=== PATIENT | female | born 1955 | race Caucasian/White ===

== ENCOUNTER → 2016-12-28 | Outpatient (CLI) | payer BC ==
[~2016-12-28] MED LIST: ASPIRIN 81MG TA81 MG PO; CEFDINIR 300MG300 MG PO; CIPRO 500MG TA500 MG PO; CLARITIN 10MG T10 MG PO; CLARITIN10 MG PO; CYMBALTA60 MG PO; DULOXETINE 30MG30 MG PO; DULOXETINE60 MG PO; GLIPIZIDE 5MG TA5 MG PO; HABITROL21 MG/24 H TD; LEVAQUIN500 MG PO; LISINOPRIL 20MG20 MG PO; LISINOPRIL40 MG PO; LORTAB 10/5001 TAB PO; LORTAB 500 MG-11 TAB PO; LYRICA75 MG PO; NOVOLIN 70/30 710 ML SC; NOVOLOG FLEX100 U/ML SC; NOVOLOG MI100 UNITS/ SC; OXYCODONE SR 2020 MG PO; Oxycodone5 MG PO; PERCOCET 10 MG1 EACH PO; PHENERGAN DM PO; PREDNISONE 20MG20 MG PO; PREDNISONE1 MG PO; PROAIR HFA0.09 MG/AC IH; PROMETHAZINE5 ML/UDC PO; PYRIDIUM 200MG200 MG PO; ROBITUSSIN DM S10 ML NG; SYNTHROID 0.10.15 MG PO; VALIUM5 MG PO; XANAX 0.25MG0.25 MG PO; ZANTAC150 M1 PO; ZESTRIL40 M1 PO; ZOFRAN4 MG PO
--- NOTE | 2016-12-28 16:03 | RADIOLOGY REPORT PS360 ---
NUC BONE SCAN-WHOLE BODY-TBB HISTORY: LUNG CA WITH METS ORDERING PHYSICIAN: Aravind Zambrano MD PATIENT AGE: 61 years DOSE: 25.7 mCi technique semi-MDP COMPARISON: None FINDINGS: Nonspecific articular activity is present in the shoulders, sternoclavicular joints, knees, and ankles. No abnormal activity evident that would indicate metastatic disease. Contamination artifact present in the perineal region. IMPRESSION: No convincing evidence of metastatic disease
== END ==
LOC: RAD 10:52
DX: C34.90 Malignant neoplasm of unspecified part of unspecified bronchus or lung (principal)
CPT/HCPCS: A9503

== ENCOUNTER 2017-02-19 10:35 | Outpatient (CLI) | payer BC ==
[~2017-02-19 10:35] MED LIST changes: +MIRALAX(PO17 GM/1 PA PO; +OXYCODONE SR 4040 MG PO
[2017-02-19 11:10] VITALS: BP 116/59
[2017-02-19 11:25] VITALS: BP 112/58
[2017-02-19 11:40] VITALS: BP 102/49
[2017-02-19 11:55] VITALS: BP 108/54
== END 2017-02-19 12:02 | disposition home or self-care (01) ==
LOC: COP 10:35
DX: C34.92 Malignant neoplasm of unspecified part of left bronchus or lung (principal)
CPT/HCPCS: J1642; J9271

== ENCOUNTER 2017-05-10 10:12 | Emergency (ER) | payer BC ==
[~2017-05-10] VITALS: Ht 167.6 cm; Wt 79.4 kg
[~2017-05-10 10:12] MED LIST changes: +LEVOTHYROXIN0.175 MG PO; +LEVOTHYROXINE0.15 M1 PO; +LYRICA 100 MG100 MG PO; +OXYCONTIN 20MG.20 MG PO
--- NOTE | 2017-05-10 11:01 | Emergency Room Report ---
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 N Clinical Suspician of Infection? Y Mental Status: 1 - Regular (Normal Baseline) Sepsis Risk:Low Sepsis Risk Have you (or family members/close friends) recently traveled outside the [place]? N If Yes, where/when: Have you had exposure to infectious disease within the past month? N TB? Other? Specify: Patient reports having no teeth lower left, and uses dentures, upper. Over the past few days she has had gingival pain and edema to the lower left gingivum, but no fever. She often does not wear her dentures due to this type of discomfort. Over the past two days, her left cheek has been numb, without any facial edema. No other new neurological symptoms. She has adrenal gland tumors for which she is being treated by Dr. Dow medically, and has a hx of radiation for lung cancer. She has had evaluations by Dr. Jacobo recently for edema, thought to be a side effect of Lyrica. She has no new cough, no fever, no vomiting, no cephalgia. She is a heavy smoker. ALLERGIES Coded Allergies: Sulfa (Sulfonamide Antibiotics) (Mild, NA-NAUSEA 05/10/17) Home Medications Active Scripts POLYETHYLENE GLYCOL (Miralax) 17 GM PO DAILY #30 DENNIS Prov: 02/08/17 Reported Medications ASPIRIN (Aspirin) 81 MG PO DAILY Alprazolam (Xanax 0.25MG) 0.25 MG PO BIDP PRN NERVES ONDANSETRON HCL (Zofran 4MG Tab) 4 MG PO Q6HP PRN NAUSEA AND VOMITING Glipizide (Glipizide 5MG) 5 MG PO DAILY #30 Oxycodone Hcl Sr (Oxycodone Sr 20MG) 20 MG PO Q4HP PRN PAIN Pregabalin (Lyrica 100Mg) 25 MG PO Q12H #60 CAPSULE Oxycodone Hcl Sr (Oxycontin 20MG) 20 MG PO Q12H Levothyroxine Sodium (Levothyroxine 0.175MG) 0.175 MG PO DAILY Albuterol Sulfate (Proair Hfa) 2 PUFF IH Q4HP PRN BREATHING #9 History Medical History General CAD? Yes Angina: Yes MD: No Hypertension? Yes Hyperlipidemia? Yes CHF? No DVT? No PE? No COPD? Yes Asthma? Yes Anemia? No GERD? No Gastric ulcers? No GI Bleed? No Hernia? No Thyroid Problems? Yes Hypothyroidism? No CVA? No Seizures? No Diabetes? Yes Insulin Dependent: No Insulin Pump: No Home FSBS? No Renal Insuffiency? No End Stage Renal Disease? No UTI? Yes Stones? No BPH? No GB Disease: Yes Nephritic Syndrome? No Asplenia? No Hepatitis? No Sickle Cell Disease? No Arthritis? Yes Migraines? No Cataracts? Yes Glaucoma? No MRSA? No HIV? No TB? No Anxiety? Yes Depression? No Cancer? Yes Site: LUNG LEFT SIDE More? Yes Additional hx: ADRENAL GLAND TUMOR Immunization Hx DT/Tetanus 5-10 Years Ago Flu 2014-16FSN Pneumonia Received In Past Surgical Hx Previous Surgery?Y HYSTERECTOMY SHOULDERS X2 R AND L BOWEL RESSECTION GALL BLADDER PTCA WITH STENTS 02/18 D AND C X 3 DX LAP APPY LYSIS OF ADHESIONS BOWEL OBSTRUCTION Family History Family Hx Diabetes Yes CAD Yes Hypertension Yes Hyperlipidemia Yes Cancer Yes TB Yes Social History Smoking Hx Smoker: Current Every Day Smoker Tobacco: Yes Type Cigarettes Packs/day > 3 Packs Are you/the child exposed to second-hand smoke: Yes Alcohol Alcohol: No Review of Systems All Other Systems Reviewed and Negative ENT see HPI, mouth pain, missing teeth. Comment heme/onc: see hpi Physical Exam Vital Signs Vital Signs Date Time Temp Pulse Resp B/P Pulse O2 O2 Flow FiO2 Ox Delivery Rate 05/10 1147 82 16 143/75 98 05/10 1020 97.7 82 16 152/85 98 General Appearance normal appearance, WD/WN, no apparent distress (chronically ill appearing) Eye Exam - bilateral eye normal exam, bilateral eye PERRL Ear, Nose, Throat tender left lower gingivum, edentulous left lower side. No drainage or odor. Jaw is without pain on palpation. No cellulitis of cheek. Subjectively numb, left cheek, to light touch but has good sensation to deep pressure. Neck normal inspection, non-tender, supple, full range of motion Respiratory Status Yes: trachea midline, chest symmetrical, non tender chest. No: respiratory distress, tender on palpation, use of accessory muscles, pain on inspiration, pain on expiration, productive cough, non productive cough. Lung Sounds bilateral: normal breath sounds, lungs clear, decreased breath sounds (heavy smoker). Cardiovascular normal exam, regular rate/rhythm, no gallop, no JVD, no murmur, no rub, normal peripheral pulses (mild edema BLE, nonpitting) Peripheral Pulses Pulses normal Yes Gastrointestinal normal bowel sounds, normal exam, non tender, soft, no organomegaly Extremities non-tender, normal range of motion, no calf tenderness, pedal edema Strength 5 Upper Ext (L), 5 Upper Ext (R), 5 Lower Ext (L), 5 Lower Ext (R) Neurologic alert, normal exam, no motor/sensory deficits, oriented x 3, NIHSS 1 for numbness to left cheek; F to N no dysmetria; no tremor; speech clear and fluent. Glascow Coma Scale Glascow Coma Scale Response Value EYE response: 4 Spontaneously 4 MOTOR response: 6 OBEYS 6 VERBAL response: 5 Oriented & Converses 5 Total 15 Reflexes DTR 3+ ankle (R), 3+ ankle (L) Skin intact, warm/dry, pallor Stroke Score/Tx Stroke Evaluation NIH STROKE SCORE NIH STROKE SCORE Response Value 1a.Level of Consciousness ALERT 0 1b.LOC Questions ANSWERS BOTH CORRECTLY 0 1c.LOC Commands OBEYS BOTH CORRECTLY 0 2 .Best Gaze NORMAL 0 3 .Visual NO VISUAL LOSS 0 4 .Facial Palsy NORMAL 0 5a.Motor Arm Left NO DRIFT 0 5b.Motor Arm Right NO DRIFT 0 6a.Motor Leg Left NO DRIFT 0 6b.Motor Leg Right NO DRIFT 0 7 .Limb Ataxia ABSENT 0 8 .Sensory PARTIAL LOSS 1 10.Dysarthria NORMAL ARTICULATION 0 ED.NIH11 NO NEGLECT 0 Total 1 Medical Decision Making LABS/Meds/Orders Pt receiving controlled substance in ED? No Vinayak was queried for this patient? No Results/Orders Laboratory Tests 05/10/17 1105: Sodium 140, Potassium 3.8, Chloride 102, Carbon Dioxide 30, BUN 14, Creatinine 0.9, Estimated Creat Clear 82, Estimated GFR (MDRD) 64, Glucose 107 H, Calcium 9.0, Total Bilirubin 0.3, AST 32, ALT 14, Alkaline Phosphatase 76, Total Protein 8.0, Albumin 3.7, Globulin 4.3 H, Albumin/Globulin Ratio 0.9 L, WBC 4.3 L, RBC 3.91 L, Hgb 12.3, Hct 37.1, MCV 94.8, RDW 13.0, Plt Count 209, MPV 7.8, Gran % 63.4, Gran # 2.7, Lymphocytes % 25.2, Monocytes % 8.9, Eosinophils % 1.6, Basophils % 0.9, Lymphocytes # 1.1, Monocytes # 0.4, Eosinophils # 0.1, Basophils # 0.0, PUBS MCHC 33.0, MCH 31.3 H Orders Procedure Date/time Status DIET-NOTHING BY MOUTH 05/[address] HEAD REQ 05/10 1045 Complete CBC WITH AUTO DIFF 05/10 1045 Complete CHEM 12 PROFILE 05/10 1045 Complete XRAY/CT/US XRAY/CT/US CT head CT interpretation by reviewed by me (report reviewed) Time results known: 1147 CT Results normal/NAD (neg acute; mastoid normal) Departure Departure Time of Disposition 1149 Disposition DC Home or Self Care(routine) Clinical Impression Primary Impression: Left facial numbness Secondary Impressions: Gingivitis Condition STABLE Referrals Juan Manuel GONZALEZ,Aravind Jacobo MD,Se Patient Instructions DI for Gingivitis Additional Instructions See Dr. Jacobo and Dr. Zambrano regarding gum pain and left face numbness; Rx amoxicillin. Discharge Counseling Counseled pt/family regarding diagnosis, test results, medications/RX, home care, follow up needs Prescriptions Current Visit Scripts Amoxicillin (Amoxicillin 500MG) 500 MG PO TID #30 CAP ED Critical Care Critical Care No at 1151
[2017-05-10 11:22] LABS: HEMOGLOBIN 12.3 g/dL (12.2-16.2); LYMPH # 1.1 K/mm3 (0.7-4.5); LYMPH % 25.2 % (10-50.0)
--- NOTE | 2017-05-10 11:35 | RADIOLOGY REPORT PS360 ---
CT HEAD W/O CONTRAST HISTORY: LEFT FACE NUMB X 3 DAYS,HX OF ADRENAL TUMORS,LEFT LOWER ORDERING PHYSICIAN: Jacqueline Valerio MD PATIENT AGE: 61 years COMPARISON: 08/24/2015 TECHNIQUE: Axial images obtained without contrast. Brain and bone windows reviewed. FINDINGS: No midline shift, mass effect, intracranial hemorrhage, hydrocephalus, or extra-axial fluid collection is evident. There is diffuse decreased attenuation in the periventricular and subcortical region suggesting ischemic gliotic microvascular changes. This is somewhat more prominent on today's exam than when compared to 08/24/2015 The calvarium has an unremarkable appearance. No mastoid effusion. The visualized paranasal sinuses are unremarkable. IMPRESSION: 1. No acute intracranial findings. 2. Diffuse hypoattenuation in the subcortical and periventricular white matter consistent with ischemic gliotic change from microvascular disease.
[2017-05-10] MEDS ORDERED: AMOXICOT500 MG PO (11:51)
[2017-05-10 12:00] VITALS: BP 143/75
[2017-05-18] MEDS ORDERED: WALK4 XX (08:03)
== END 2017-05-10 12:00 | disposition home or self-care (01) ==
LOC: ER 10:12
PROVIDERS: Emergency Medicine
DX: R20.0 Anesthesia of skin (principal); K05.10 Chronic gingivitis, plaque induced; Z72.0 Tobacco use; E11.9 Type 2 diabetes mellitus without complications; J44.9 Chronic obstructive pulmonary disease, unspecified; I10 Essential (primary) hypertension; Z85.118 Personal history of other malignant neoplasm of bronchus and lung

== ENCOUNTER 2017-05-17 17:15 | Observation (INO) | payer MEDICARE ==
[~2017-05-17] VITALS: Ht 167.6 cm; Wt 81.7 kg
[2017-05-17 17:27] VITALS: BP 102/84
--- NOTE | 2017-05-17 17:53 | Emergency Room Report ---
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 ORIGINALLY HAD BEEN DIAGNOSED WITH LUNG CA, ADRENAL CA, AND NOW BONE. 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 N Clinical Suspician of Infection? N Mental Status: 1 - Regular (Normal Baseline) Sepsis Risk:Low Sepsis Risk Have you (or family members/close friends) recently traveled outside the [place]? N If Yes, where/when: Have you had exposure to infectious disease within the past month? TB? Other? Specify: Comment The patient has multiple complaints, history is largely obtained from her son as the patient is a poor historian. He states that she fell today at around 10 or 11 AM. She did not answer family's calls and family member went over and found her in the floor. The patient says she had laid there for 3 hours. She was able to get up and ambulate with assistance, but complains of bilateral hip pain. He says that today she is off balance when she walks and is walking hunched over. All of that is new today. She says that when she tries to straighten up and walk erect her head hurts. She says that she has neck pain for about 2 weeks and lower back pain for about 3 weeks. Son states she is not eating well because of jaw pain which she has had for a couple of weeks. The patient was seen in this emergency room on 05/10/17 for jaw pain. She also had some facial numbness. She had a CT scan of her head that was unremarkable. She was started on amoxicillin for presumed dental origin of her pain. She followed up with her cancer doctor, Dr. Zambrano, and had a Panorex film on 05/15 which showed a lytic lesion. 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 She is also being treated for stage III small cell lung cancer, last treatment was in March. ALLERGIES Coded Allergies: Sulfa (Sulfonamide Antibiotics) (Mild, NA-NAUSEA 05/17/17) Home Medications Active Scripts POLYETHYLENE GLYCOL (Miralax) 17 GM PO DAILY #30 DENNIS Prov: 02/08/17 Amoxicillin (Amoxicillin 500MG) 500 MG PO TID #30 CAP Prov: 05/10/17 Reported Medications ASPIRIN (Aspirin) 81 MG PO DAILY Alprazolam (Xanax 0.25MG) 0.25 MG PO BIDP PRN NERVES ONDANSETRON HCL (Zofran 4MG Tab) 4 MG PO Q6HP PRN NAUSEA AND VOMITING Glipizide (Glipizide 5MG) 5 MG PO DAILY #30 Oxycodone Hcl Sr (Oxycodone Sr 20MG) 20 MG PO Q4HP PRN PAIN Pregabalin (Lyrica 100Mg) 25 MG PO Q12H #60 CAPSULE Oxycodone Hcl Sr (Oxycontin 20MG) 20 MG PO Q12H Levothyroxine Sodium (Levothyroxine 0.175MG) 0.175 MG PO DAILY Albuterol Sulfate (Proair Hfa) 2 PUFF IH Q4HP PRN BREATHING #9 History Medical History General CAD? Yes Angina: Yes [place]: No Hypertension? Yes Hyperlipidemia? Yes CHF? No DVT? No PE? No COPD? Yes Asthma? Yes Anemia? No GERD? No Gastric ulcers? No GI Bleed? No Hernia? No Thyroid Problems? Yes Hypothyroidism? No CVA? No Seizures? No Diabetes? Yes Insulin Dependent: No Insulin Pump: No Home FSBS? No Renal Insuffiency? No End Stage Renal Disease? No UTI? Yes Stones? No BPH? No GB Disease: Yes Nephritic Syndrome? No Asplenia? No Hepatitis? No Sickle Cell Disease? No Arthritis? Yes Migraines? No Cataracts? Yes Glaucoma? No MRSA? No HIV? No TB? No Anxiety? Yes Depression? No Cancer? Yes Site: LUNG LEFT SIDE More? Yes Additional hx: ADRENAL GLAND TUMOR Immunization Hx Ped.Immunizations UTD Yes DT/Tetanus 5-10 Years Ago Flu 2015-16FSN Pneumonia Received In Past Surgical Hx Previous Surgery?Y HYSTERECTOMY SHOULDERS X2 R AND L BOWEL RESSECTION GALL BLADDER PTCA WITH STENTS 6/05 D AND C X 3 DX LAP APPY LYSIS OF ADHESIONS BOWEL OBSTRUCTION Family History Family Hx Diabetes Yes CAD Yes Hypertension Yes Hyperlipidemia Yes Cancer Yes TB Yes Social History Smoking Hx Smoker: Current Every Day Smoker Tobacco: Yes Type Cigarettes Packs/day < 1 Pack Alcohol Alcohol: No Review of Systems All Other Systems Reviewed and Negative Constitutional see HPI, denies fever, weakness Respiratory denies cough, denies shortness of breath Cardiovascular denies chest pain Gastrointestinal denies abdominal pain, denies diarrhea, denies vomiting Genitourinary denies: dysuria, frequency. Musculoskeletal back pain, joint pain, neck pain Psychiatric/Neurological headache Physical Exam Vital Signs Vital Signs Date Time Temp Pulse Resp B/P Pulse O2 O2 Flow FiO2 Ox Delivery Rate 05/17 1727 97.8 81 18 102/84 100 General Appearance appears chronically ill and generally weak, sitting in a wheelchair Eye Exam - bilateral eye normal exam, bilateral eye PERRL, bilateral eye EOMI Ear, Nose, Throat hearing grossly normal, normal ENT inspection Neck minimal posterior tenderness Respiratory Status Yes: trachea midline, chest symmetrical. No: respiratory distress. Lung Sounds bilateral: normal breath sounds, lungs clear. Cardiovascular normal exam, regular rate/rhythm, no peripheral edema, no gallop, no JVD, no murmur, no rub, normal peripheral pulses Peripheral Pulses Pulses normal Yes Gastrointestinal normal bowel sounds, normal exam, non tender, soft, no organomegaly Back vertebral tenderness (mild lower lumbar) Extremities no deformity of lower extremities. Bilateral hip tenderness Neurologic alert, normal exam, oriented x 3 Mental status normal mood/affect Skin intact, normal color, warm/dry Medical Decision Making LABS/Meds/Orders Pt receiving controlled substance in ED? No Results/Orders Laboratory Tests 05/17/17 1905: Sodium 142, Potassium 4.6, Chloride 106, Carbon Dioxide 29, BUN 21 H, Creatinine 1.1 H, Estimated Creat Clear 67, Estimated GFR (MDRD) 50 L, Glucose 94, Calcium 8.1 L, Total Bilirubin 0.3, AST 65 H, ALT 22, Alkaline Phosphatase 81, Creatine Kinase 1399 H, CK-MB (CK-2) Rel Index 1.8, CK and CKMB Interp 25.5 *H, Troponin I < 0.02, Total Protein 7.7, Albumin 3.6, Globulin 4.1 H, Albumin/ Globulin Ratio 0.9 L, WBC 5.5, RBC 3.77 L, Hgb 11.8 L, Hct 35.4 L, MCV 93.8, RDW 13.1, Plt Count 210, MPV 7.5, Gran % 68.4, Gran # 3.8, Lymphocytes % 21.2, Monocytes % 7.4, Eosinophils % 2.1, Basophils % 0.8, Lymphocytes # 1.2, Monocytes # 0.4, Eosinophils # 0.1, Basophils # 0.1, PUBS MCHC 33.3, MCH 31.2 Current Medication Orders Sig/Steven Start time Last Medication Dose Route Stop Time Status Admin Sodium Chloride 10 ML PRN PRN 05/17 181 AC IV 05/18 180 Orders Procedure Date/time Status DIET-NOTHING BY MOUTH 05/18 B Active Decision to admit 05/17 2012 Active ELECTROCARDIOGRAM REQUEST 05/[address] HEAD REQ 05/[address] SCAN REQ 05/17 180 Active HIP RT 2-3V W/PELVIS IF PERFOR 05/17 180 Active HIP LT 2-3V W/PELVIS IF PERFOR 05/17 180 Active CHEST-AP VIEW ONLY 05/17 180 Active IV SALINE LOCK 05/17 180 Active URINALYSIS/COMPLETE 05/17 1804 Active CBC WITH AUTO DIFF 05/17 180 Complete CARDIAC ENZYMES 05/17 180 Complete CHEM 12 PROFILE 05/17 180 Complete CM/EKG CM/EKG Comments EKG interpreted by Nathan Manzanares MD: Rhythm: sinus Rate: 74 [place]: normal Ectopy: none Conduction: normal ST Segment Changes: none T Wave Changes: none Q Waves: none No evidence of acute ischemia or injury Low voltage QRS Baseline artifact present, but I consider the EKG adequate for accurate interpretation. Progress - 7:00 PM: Case discussed with Dr. Jacobo. He states the patient has a tendency to overuse pain medications and wanted me to question the patient about this. I did so and both the patient and her family states she has been using them as prescribed. 8:05 PM: I have discussed the case with Dr. Jacobo who agrees to admit the patient to the hospital. We discussed the patient's clinical information, including history, exam, laboratory and radiology results and ED course. Per hospital procedure, I will write temporary bridge inpatient orders on the patient. Specific orders requested by the admitting physician: IV hydration, continue current pain medications, repeat creatine phosphokinase in the morning Departure Departure Disposition Still a Patient Clinical Impression Primary Impression: Rhabdomyolysis Qualifiers: Rhabdomyolysis type: traumatic Encounter type: initial encounter Qualified Code: T79.6XXA - Traumatic ischemia of muscle, initial encounter Secondary Impressions: Dehydration Condition STABLE Referrals Se Jacobo MD (Family) ED Critical Care Critical Care No at 2025
[2017-05-17 19:15] LABS: HEMOGLOBIN 11.8 g/dL (12.2-16.2); LYMPH # 1.2 K/mm3 (0.7-4.5); LYMPH % 21.2 % (10-50.0)
--- NOTE | 2017-05-17 19:27 | RADIOLOGY REPORT PS360 ---
CT CERVICAL SPINE W/O CONT HISTORY: FALL. Patient Age: 61 years: Female Ordering Physician: Nathan Manzanares MD TECHNIQUE: Helical CT scanning through the cervical spine with sagittal and coronal reconstructions on CT workstation COMPARISON :No previous comparison C-spine studies FINDINGS Reversal of the normal cervical curvature with mild kyphosis through the lower cervical spine. This appears be due to the due to the degenerative disc space narrowing anteriorly at Lower C-spine most evident C5/ C6; C6/7. No lesions. No acute findings cervical spine.. Degenerative facet changes bilaterally are seen throughout the C-spine as well most evident on the right at C 2/3 C3/4, and on the left at C4/5 C5 C6 C6/7.. The cervical vertebral bodies are intact as stated with no destructive lesion evident If pain persists at the cervical spine MR is best evaluate for disc disease.. Cervical spondylosis. Mild posterior hypertrophic ridging most evident at C6/7, most evident the left at C6/7. This indents cervical canal to the left.. The thyroid is enlarged. The right lobe is larger than left. Right lobe measure over 5 cm length with slightly more lobulated particularly at its lower pole noting right lobe extends down to the sternal notch \& posterior to the head of right clavicle.. Indwelling Port-A-Cath enters from right Mild diffuse mucosal thickening left maxillary sinus mild inferior right maxillary sinus. Dental caries is seen at the remaining teeth. We do not visualize the right apical lucency beneath the right 2 seen on recent Panorex. I would note that this is a common spot for additional disease and may not be related to tumor. Dental evaluation required. I would note that there is a more prominent left masseter muscle been right. The right appears atrophic. Clinical correlation required. Prevertebral soft tissues are normal at the C-spine. No significant cervical adenopathy. IMPRESSION: 1. No lesions involving cervical spine . No acute fracture nor subluxation cervical spine. . 2. Degenerative disc and facet changes C-spine . Cervical spondylosis Reversal normal cervical curvature appears be due to degenerative disc space narrowing most evident anteriorly C5 C6 C6/7 and to lesser degree other levels. 3. Incidental Thyromegaly. Larger right lobe extends down to the sternal notch & is more lobulated than left.. Underlying thyroid nodules with largest likely over 2 cm size.. 4. No cervical adenopathy or mass otherwise seen. 5. Additional note. Suspect 2.2 cm enlarged lymph node posterior to the left SC joint axial image 73. . It appears separate from the thyroid.... After thyroid function and workup completed, recommended follow-up postcontrast CT neck and chest with contrast.
[2017-05-17 19:45] LABS: BUN 21 mg/dL (7-18); GFR (ESTIMATED) 50 ML/MIN (59-)
--- NOTE | 2017-05-17 19:46 | RADIOLOGY REPORT PS360 ---
CT LUMBAR SPINE W/O CONTRAST HISTORY: FALL. With low back pain. HISTORY of cancer. Patient Age: 61 years: Female Ordering Physician: Nathan Manzanares MD TECHNIQUE: Helical CT scanning performed through the and lumbar spine with sagittal and coronal reconstructions COMPARISON :Previous MRI lumbar spine from 2012 for comparison. FINDINGS No acute fracture nor subluxation lumbar spine nor visualized portions sacrum. Lumbar Vertebral body heights are maintained with no apparent destructive lesion. . Mild chronic changes but SI joints appear similar to previous studies. There is a slight 18 mm relative lucent appearance at the anterior left sacrum on axial image 46. Appearing other projections this appears to be merely an area of relative left density but recommend bone scan this patient to further evaluate.. Difficult to exclude a osseous lesion here. Recommend bone scan to further evaluate Bilateral adrenal masses have shown progression since prior study. Left adrenal now measuring up to 6 cm. The right adrenal measuring over 7 cm diameter maximally x 8.5 cm height. These are shown interval progression since 02/04/2017. IMPRESSION: Lumbar spine intact no acute findings.. No fractures evident Prominent progression of the previously identified adrenal masses since since January 2017 exam Right adrenal now measuring over a 8.5 cm cm height. Warrants follow-up CT abdomen and pelvis with contrast as outpatient after thyroid function test and workup.. No discrete destructive osseous lesions.. Slight relative lucency at inferior left sacral discussed above most likely normal bone thinning here but recommend bone scan to further evaluate osseous structures.. Addendum. The right thyroid appears to the large since previous CT chest . The questioned mediastinal nodule behind the left orbital joint could be related to the left thyroid enlargement based on prior CT chest
--- NOTE | 2017-05-17 19:46 | RADIOLOGY REPORT PS360 ---
CT HEAD WITHOUT CONTRAST CT BONE WINDOWS included ORDERING PHYSICIAN : Nathan Manzanares MD PATIENT AGE: 61 years GENDER: Female PROCEDURE: Routine axial images headwithout contrast. Brain & bone windows HISTORY: FALL. Head injury Headache. HISTORY of cancer COMPARISON: 05/10/2017 CT head without contrast FINDINGS: No acute intracranial findings. No hemorrhage. No mass effect or mass lesion on this noncontrast study. No subdural nor extra-axial collection. Diffuse low-density periventricular and subcortical deep white matter is again seen-unchanged since previous study. This most likely reflects chronic small vessel ischemic gliotic changes.. Postradiation changes can have similar appearance of relevant. Mild/moderate diffuse cerebral atrophy. Ventricles & basal cisterns appear satisfactory. Mild streak artifact diminishes resolution towards the base of the brain but adequate study. . The posterior fossa appear satisfactory and unremarkable. The skull is intact. The visualized portions of the paranasal sinuses are clear. Mastoid air cells, middle ear & IACs are unremarkable. IMPRESSION: No acute intracranial findings. No mass effect or mass lesion. No significant change since 05/10/2017. Chronic small vessel deep white matter changes Skull. No destructive lesions evident
--- NOTE | 2017-05-17 20:36 | RADIOLOGY REPORT PS360 ---
CHEST-AP VIEW ONLY HISTORY: weak history of cancer with radiation therapy Patient Age: 61 years: Female Ordering Physician: Nathan Manzanares MD TECHNIQUE: AP chest upright COMPARISON :04/01/[address] chest 03/28/2017 FINDINGS Prominent left hilum .-A basically unchanged.) A slightly less pronounced today than 04/01/2017. Postradiation changes here with. Linear scarring at the left midlung again evident Port-A-Cath enters from the right subclavian with tip at SVC. Right chest stable. Less optimal inspiration today. Heart upper normal in size. Superior mediastinum unremarkable. Ribs chest wall unremarkable. IMPRESSION: Basically stable chest. No significant new findings Prominent left left jameson persist. With no significant change since 04/01/2017. Treated post radiation left hilar mass. . Port-A-Cath remains entering from right
[2017-05-17 20:40] VITALS: BP 125/67
--- NOTE | 2017-05-17 20:43 | RADIOLOGY REPORT PS360 ---
, HIP RT 2-3V W/PELVIS IF PERFOR HIP LT hip 2-3V HISTORY: weakhistory of cancer fall with pain at hips Patient Age: 61 years: Female Ordering Physician: Nathan Manzanares MD TECHNIQUE: Left hip: AP frog-leg view left hip Right hip AP frog-leg view AP pelvis radiograph COMPARISON : CT abdomen and pelvis from January 2017 ======== LEFT HIP 2 view ankle . Left hip intact femoral head and neck intact trochanteric region intact. Left hip joint space well maintained RIGHT HIP Right hip intact a with no fracture evident. No discrete lesion. Femoral head and neck intact. . there is subtle relative lucency at the superior base of the right femoral head but this is stable since previous CT studies January 2017, September 2015, as well as March 2015. Most likely minor subchondral cystic feature.. Trochanteric region intact. Right hip joint spaces well-maintained. ========= AP PELVIS. Osseous pelvis intact with no lesions evident. Stable appearance. Generous stool right colon incidentally noted IMPRESSION Right and left hip intact. No fracture. Osseous pelvis intact. No acute findings of these structures. No destructive lesions
[2017-05-17 21:00] VITALS: BP 125/67
[2017-05-18 04:50] VITALS: BP 135/55
[2017-05-18 06:18] LABS: URINE BILIRUBIN - DIPSTICK NEGATIVE (NEG); URINE BLOOD 2+ (NEG)
[2017-05-18 08:00] VITALS: BP 127/54
--- NOTE | 2017-05-18 08:00 | Discharge Summary Standard ---
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 Patient lives alone. Patient states she stumbled walking through her house where there is a slight bump in the floor. She was too weak to get up under her own power and laid on the floor for approximately 3 hours. She was found by family brought to the emergency department. In the emergency department workup was begun. Patient did not have any bone fractures that was found to have mild rhabdomyolysis with an elevated creatine phosphokinase over thousand. Patient was admitted for IV fluids. Past medical history: Family HX Family Hx Insignificant No Diabetes Yes CAD Yes Hypertension Yes Hyperlipidemia Yes Cancer Yes TB Yes Immunization HX Ped.Immunizations UTD Yes DT/Tetanus 5-10 Years Ago Flu 2014-FSN Pneumonia Received In Past TB Test in last year No General CAD? Yes Angina: Yes MO: No Hypertension? Yes Hyperlipidemia? Yes CHF? No DVT? No PE? No COPD? Yes Asthma? Yes Anemia? No GERD? No Gastric ulcers? No GI Bleed? No Hernia? No Thyroid Problems? Yes Hypothyroidism? No CVA? No Seizures? No Diabetes? Yes Insulin Dependent: No Insulin Pump: No Home FSBS? No Renal Insuffiency? No UTI? Yes Stones? No BPH? No GB Disease: Yes Nephritic Syndrome? No Asplenia? No Hepatitis? No Sickle Cell Disease? No Arthritis? Yes Migraines? No Cataracts? Yes Glaucoma? No MRSA? No HIV? No TB? No Anxiety? Yes Depression? No Cancer? Yes Site: LUNG LEFT SIDE More? Yes Additional hx: ADRENAL GLAND TUMOR Past Surgical HX Previous Surgery?Y HYSTERECTOMY SHOULDERS X2 R AND L BOWEL RESSECTION GALL BLADDER PTCA WITH STENTS 02/18 D AND C X 3 DX LAP APPY LYSIS OF ADHESIONS BOWEL OBSTRUCTION Current home meds: Active Scripts POLYETHYLENE GLYCOL (Miralax) 17 GM PO DAILY #30 DENNIS Prov: 02/08/17 Amoxicillin (Amoxicillin 500MG) 500 MG PO TID #30 CAP Prov: 05/10/17 Reported Medications Alprazolam (Xanax 0.25MG) 0.25 MG PO BIDP PRN NERVES ONDANSETRON HCL (Zofran 4MG Tab) 4 MG PO Q6HP PRN NAUSEA AND VOMITING Glipizide (Glipizide 5MG) 5 MG PO DAILY #30 Pregabalin (Lyrica 100Mg) 25 MG PO Q12H #60 CAPSULE Oxycodone Hcl Sr (Oxycontin 20MG) 20 MG PO Q12H Levothyroxine Sodium (Levothyroxine 0.175MG) 0.175 MG PO DAILY Albuterol Sulfate (Proair Hfa) 2 PUFF IH Q4HP PRN BREATHING #9 Social Hx: Smoking HX Tobacco Yes Type Cigarettes Packs/day > 3 PACKS Alcohol Alcohol: No Hx of Drug Use Drug Use? No Patient's support system is good Review of systems: Constitutional weakness. Respiratory shortness of breath. Cardiovascular no symptoms reported Gastrointestinal/Abdominal no symptoms reported, poor appetite (due to pain) Genitourinary no symptoms reported. Musculoskeletal back pain, joint pain, muscle pain, muscle stiffness. Neurological Yes: tingling (LEFT jaw). No: headache, numbness. Exam: Lab data for last 24 hours: Laboratory Tests 05/18/17 0630: Sodium 144, Potassium 3.6, Chloride 108 H, Carbon Dioxide 28, BUN 16, Creatinine 0.9, Estimated Creat Clear 85, Estimated GFR (MDRD) 64, Glucose 114 H, Calcium 8.3 L, Creatine Kinase 776 H 05/18/17 0609: Urine Color YELLOW, Urine Appearance CLEAR, Urine pH 5.5, Ur Specific [place] 1.020, Urine Protein NEGATIVE, Urine Ketones NEGATIVE, Urine Blood 2+ H, Urine Nitrate POSITIVE H, Urine Bilirubin NEGATIVE, Urine Urobilinogen 0.2, Ur Leukocyte Esterase TRACE H, Urine RBC 5-10, Urine WBC 5-10, Ur Squamous Epith Cells 3-5, Urine Bacteria 4+, Urine Glucose NEGATIVE 05/17/172: POC Glucose 90 05/17/17 1905: Sodium 142, Potassium 4.6, Chloride 106, Carbon Dioxide 29, BUN 21 H, Creatinine 1.1 H, Estimated Creat Clear 67, Estimated GFR (MDRD) 50 L, Glucose 94, Calcium 8.1 L, Total Bilirubin 0.3, AST 65 H, ALT 22, Alkaline Phosphatase 81, Creatine Kinase 1399 H, CK-MB (CK-2) Rel Index 1.8, CK and CKMB Interp 25.5 *H, Troponin I < 0.02, Total Protein 7.7, Albumin 3.6, Globulin 4.1 H, Albumin/ Globulin Ratio 0.9 L, WBC 5.5, RBC 3.77 L, Hgb 11.8 L, Hct 35.4 L, MCV 93.8, RDW 13.1, Plt Count 210, MPV 7.5, Gran % 68.4, Gran # 3.8, Lymphocytes % 21.2, Monocytes % 7.4, Eosinophils % 2.1, Basophils % 0.8, Lymphocytes # 1.2, Monocytes # 0.4, Eosinophils # 0.1, Basophils # 0.1, PUBS MCHC 33.3, MCH 31.2 Microbiology 05/18 0609 URINE CC: Urine Culture - RECD Hospital Course Hospital Course: Patient was admitted and placed on IV normal saline 150 ML's an hour. The following morning her creatine phosphokinase decreased to 700. The patient desired discharged home area patient was discharged home. She will need a walker and she has felt increasingly weak. The importance of rehydration has been emphasized. Her urine is abnormal and I will follow up on the culture. Patient has follow-up with her oncologist in regards to treatment options for the metastatic disease in her mandible later this week and she will follow-up with me the following day. Medications Medications: Discharge meds are as noted. Follow up Follow up in office in: 5 DAYS with: Se Jacobo MD at 0800
[2017-05-18 08:24] VITALS: BP 127/54
--- NOTE | 2017-05-18 11:11 | PHARMACY CLINIC NOTE ---
Patient Demographics Patient Demographics Admission date: 05/17/17 Date: 05/18/17 Time: 1111 Allergies Coded Allergies: Sulfa (Sulfonamide Antibiotics) (Mild, NA-NAUSEA 05/17/17) HEIGHT- FT: 5 IN: 6.00 K.704 VTE General Information Labs: Laboratory Tests 05/17 190 Hematology Hgb (12.2 - 16.2 g/dL) 11.8 L Hct (37.0 - 47.0 %) 35.4 L Plt Count (142 - 424 K/mm3) 210 Disclaimer The following section includes nursing documentation that has been pulled in for pharmacy review. Patient's VTE score: 6 Patient's VTE Risk: MOD RISK Clinical trial participant? No VTE prophylaxis NQF [id number] VTE prophylaxis ordered? Yes Type of prophylaxis/treatment: YENI at 1111
[2017-05-18 13:20] VITALS: BP 127/54
--- OUTSIDE RECORDS SUMMARY | 2017-06-22 00:51 | External Medical Summary Rpt ---
Author Author , DEDRICK TSE Address Unknown Phone [email or web address] Immunization Name Date Rout CVX Reac Dose Comm Prov Is Faci e tion ent ider Refu lity Give sed n Hep 05-3 43 999 Hist H191 No H191 B, 0-19 oric adul 97 al t Info rmat ion - Sour ce Unsp ecif ied Hep 12-3 43 999 Hist H191 No H191 B, 0-19 oric adul 96 al t Info rmat ion - Sour ce Unsp ecif ied
--- OUTSIDE RECORDS SUMMARY | 2017-06-22 00:51 | External Medical Summary Rpt ---
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 Name Role Phone DEMI FERNANDEZ MD, Unavailable Unavailable DEMI FERNANDEZ MD Purpose Continuity of Care Document - 05-22-2013 through 2016 Problems Code Diagnosis DOS Provider Status 250.01 250.01 DIAB 05-22-2013 [facility], TYPE Hospital I [JUVENILE TYPE], NOT UNCNTRLD 305.1 305.1 05-22-2013 [place] TOBACCO USE [facility] DISORDER Hospital 401.9 401.9 05-22-2013 [place] HYPERTENSIO [facility] N NOS Hospital 491.9 491.9 05-22-2013 [place] CHRONIC [facility] BRONCHITIS Hospital NOS 493.90 493.90 05-22-2013 [place] ASTHMA, [facility] UNSPECIFIED Hospital 786.2 786.2 COUGH 05-22-2013 [facility] 786.50 786.50 05-22-2013 [place] CHEST PAIN [facility] Hospital 789.06 789.06 05-22-[address] [place] [address] [facility], Hospital EPIGASTRIC C34.90 MALIGNANT NEOPLASM OF UNSP PART OF UNSP BRONCHUS OR LUNG E11.9 TYPE 2 DIABETES MELLITUS WITHOUT COMPLICATIO NS E16.2 HYPOGLYCEMI A, UNSPECIFIED E86.0 DEHYDRATION E87.5 HYPERKALEMI A J40 BRONCHITIS, NOT SPECIFIED ACUTE OR CHRONIC J44.1 CHRONIC OBSTRUCTIVE PULMONARY DISEASE W (ACUTE) EXACERBATIO N J45.909 UNSPECIFIED ASTHMA, UNCOMPLICAT ED K05.10 CHRONIC GINGIVITIS, PLAQUE INDUCED K29.70 GASTRITIS, UNSPECIFIED , WITHOUT BLEEDING K59.00 CONSTIPATIO N, UNSPECIFIED M53.3 SACROCOCCYG EAL DISORDERS, NOT ELSEWHERE CLASSIFIED M62.82 RHABDOMYOLY SIS M89.8X1 OTHER SPECIFIED DISORDERS OF BONE, SHOULDER R09.89 OTH SYMPTOMS AND SIGNS INVOLVING THE CIRC AND RESP SYSTEMS R10.9 UNSPECIFIED ABDOMINAL PAIN R20.0 ANESTHESIA OF SKIN S40.011A CONTUSION OF RIGHT SHOULDER, INITIAL ENCOUNTER S50.11XA CONTUSION OF RIGHT FOREARM, INITIAL ENCOUNTER Allergies, Adverse Reactions, Alerts Type Drug Allergy Adverse Reaction to Substance Substance Reaction Severity Codeine Unknown Unknown Morphine Unknown Unknown Vital Signs 05-22-2013 14:19 Name Value Interpretat Reference Comment ion Range BP 72 mm[Hg] Diastolic BP Systolic 155 mm[Hg] Heart 70 /min Rate/Pulse O2% 95 % Respiratory 20 /min Rate 05-22-2013 10:50 Name Value Interpretat Reference Comment ion Range BP 70 mm[Hg] Diastolic BP Systolic 158 mm[Hg] Heart 84 /min Rate/Pulse O2% 91 % Respiratory 20 /min Rate Results Labs Lab Lab Date Result Refere Interp Status Commen Order Detail nces retati t Range on Bacteria identified in Urine by Culture (05-18-2017 06:09) Bacteri Escheri complet a 017 marcia ed identif 06:09 coli ied in Urine by Culture Urinalysis dipstick W Reflex Microscopic panel in Urine (05-18-2017 06:09) Bacteri 4+ O complet a 017 ed [Presen 06:09 ce] in Urine sedimen t by Light microsc opy Erythro 5-10 0 complet cytes 017 ed [Presen 06:09 ce] in Urine sedimen t by Light microsc opy Epithel 3-5 0#/hp complet ial 017 f - ed cells.s 06:09 5#/hp quamous f [Presen ce] in Urine sedimen t by Microsc opy high power field Leukocy 5-10 O complet maritza 017 wbc/hpf ed [#/volu 06:09 me] in Urine Urinalysis dipstick W Reflex Microscopic panel in Urine (05-18-2017 06:09) Appeara CLEAR CLEAR complet nce of 017 ed Urine 06:09 Bilirub NEGATIV NEG complet in 017 E ed [Presen 06:09 ce] in Urine by Test strip Erythro 2+ NEG Abnorma complet cytes 017 l ed [Presen 06:09 ce] in Urine Color YELLOW YELLOW complet of 017 ed Urine 06:09 Ketones NEGATIV NEG complet 017 E ed [Presen 06:09 ce] in Urine by Automat ed test strip Mucus TRACE NEG Abnorma complet [Presen 017 l ed ce] in 06:09 Urine sedimen t by Light microsc opy Nitrite POSITIV NEG Abnorma complet 017 E l ed [Presen 06:09 ce] in Urine by Test strip Urobili 0.2 NEG complet nogen 017 ed [Presen 06:09 ce] in Urine by Test strip Urinalysis dipstick W Reflex Microscopic panel in Urine (04-01-2017 19:35) Bacteri TRACE O complet a 017 ed [Presen 19:35 ce] in Urine sedimen t by Light microsc opy Erythro NONE 0 complet cytes 017 ed [Presen 19:35 ce] in Urine sedimen t by Light microsc opy Epithel OCC 0#/hp complet ial 017 f - ed cells.s 19:35 5#/hp quamous f [Presen ce] in Urine sedimen t by Microsc opy high power field Urinalysis dipstick W Reflex Microscopic panel in Urine (04-01-2017 19:35) Appeara CLEAR CLEAR complet nce of 017 ed Urine 19:35 Bilirub NEGATIV NEG complet in 017 E ed [Presen 19:35 ce] in Urine by Test strip Erythro TRACE-I NEG complet cytes 017 NTACT ed [Presen 19:35 ce] in Urine Color YELLOW YELLOW complet of 017 ed Urine 19:35 Ketones NEGATIV NEG complet 017 E ed [Presen 19:35 ce] in Urine by Automat ed test strip Mucus TRACE NEG Abnorma complet [Presen 017 l ed ce] in 19:35 Urine sedimen t by Light microsc opy Nitrite NEGATIV NEG complet 017 E ed [Presen 19:35 ce] in Urine by Test strip Urobili 0.2 NEG complet nogen 017 ed [Presen 19:35 ce] in Urine by Test strip COMPREHENSIVE METABOLIC PANEL (05-22-2013 11:25) Glucose 177 74-106 complet 013 mg/dL ed Bld-mCn 11:25 c BUN 14 7-18 complet Bld-mCn 013 mg/dL ed c 11:25 Creat 0.9 0.6-1.0 complet SerPl-m 013 mg/dL ed Cnc 11:25 ESTIMAT 100 50-200 complet ED 013 ML/MIN ed CREATIN 11:25 INE CLEARAN CE GFR 65 59- complet (ESTIMA 013 ML/MIN ed YENI) 11:25 Sodium 137 136-145 complet SerPl-s 013 mmoL/L ed Cnc 11:25 Potassi 3.8 3.5-5.1 complet um 013 mmoL/L ed SerPl-s 11:25 Cnc Chlorid 100 98-107 complet e 013 mmoL/L ed SerPl-s 11:25 Cnc CO2 29 21.0-32 complet SerPl-s 013 mmoL/L .0 ed Cnc 11:25 Calcium 8.7 8.5-10. complet 013 mg/dL 1 ed SerPl-m 11:25 Cnc Prot 8.1 6.4-8.2 complet SerPl-m 013 gm/dL ed Cnc 11:25 Albumin 3.7 3.4-5.0 complet 013 gm/dL ed SerPl-m 11:25 Cnc Globuli 4.4 1.3-3.2 complet n 013 gm/dL ed Ser-mCn 11:25 c Albumin 0.8 UNK 1.1-1.8 complet /Glob 013 ed SerPl-m 11:25 Rto Bilirub 0.3 0.2-1.0 complet 013 mg/dL ed SerPl-m 11:25 Cnc AST 14 U/L 15-37 complet SerPl-c 013 ed Cnc 11:25 ALT 29 U/L 30-65 complet SerPl-c 013 ed Cnc 11:25 ALP 131 U/L 50-136 complet SerPl-c 013 ed Cnc 11:25 CK SerPl-cCnc (05-22-2013 11:25) CK 175 U/L 26-192 complet SerPl-c 013 ed Cnc 11:25 CK MB SerPl-mCnc (05-22-2013 11:25) CK MB 1.5 0.0-3.6 complet SerPl-m 013 ng/mL ed Cnc 11:25 TROPONIN I (05-22-2013 11:25) TROPONI Less 0.00-0. complet N I 013 than 06 ed 11:25 0.02 ng/mL CBC with AUTO DIFF (05-22-2013 11:25) WBC # 10.1 4.8-10. complet Bld 013 K/MM3 8 ed Auto 11:25 RBC # 5.12 4.2-5.4 complet Bld 013 M/mm3 ed Auto 11:25 Hgb 15.6 12.2-16 complet Bld-mCn 013 g/dL .2 ed c 11:25 Hct Fr 47.2 % 37.0-47 complet Bld 013 .0 ed 11:25 MCV RBC 92.2 fl 82.2-97 complet 013 .8 ed 11:25 MCH RBC 30.4 pg 27-31.2 complet Qn 013 ed Auto 11:25 MEAN 33.0 31.8-35 complet CORPUSC 013 g/dl .4 ed ULAR 11:25 HGB CONC RDW RBC 05-22-2 14.3 % 11.5-17 complet Auto 013 .5 ed 11:25 Platele 297 142-424 complet t Bld 013 K/mm3 ed Ql 11:25 Manual MEAN 8.3 fl 7.4-10. complet PLATELE 013 4 ed T 11:25 VOLUME Granulo 72.6 % 37.0-80 complet cytes 013 .0 ed Fr Bld 11:25 Auto LYMPH % 2 20.9 % 10-50.0 complet 013 ed 11:25 Monocyt 09-06-2 4.2 % 1.7-9.3 complet es Fr 013 ed Bld 11:25 Auto Eosinop 09-06-2 1.6 % 0.1-12. complet hil Fr 013 0 ed Bld 11:25 Auto Basophi 09-06-2 0.7 % 0.1-2.0 complet ls Fr 013 ed Bld 11:25 Auto Granulo 09-06-2 7.3 1.8-7.8 complet cytes # 013 K/mm3 ed Bld 11:25 Auto Lymphoc 09-06-2 2.1 0.7-4.5 complet ytes Fr 013 K/mm3 ed Bld 11:25 Auto Monocyt 09-06-2 0.4 0.1-1.0 complet es # 013 K/mm3 ed Bld 11:25 Auto Eosinop 09-06-2 0.2 0.0-0.4 complet hil # 013 K/mm3 ed Bld 11:25 Auto Basophi 09-06-2 0.1 0-0.2 complet ls # 013 K/MM3 ed Bld 11:25 Auto Glucose BldC Glucomtr-mCnc (05-22-2013 10:37) Glucose 202 70-110 complet BldC 013 mg/dl ed Glucomt 10:37 r-mCnc Encounters Encounter Start End Date Code Location Performer Type Date Emergency WILLIAM FERNANDEZ (ER) 3 10:50 3 14:21 [facility] DEMI
--- OUTSIDE RECORDS SUMMARY | 2017-06-22 00:51 | External Medical Summary Rpt ---
Author Author , DEDRICK TSE Address Unknown Phone [email or web address] Care Team Providers Care Automatic Fabric Cutter Name Role Phone DEMI FERNANDEZ MD, Unavailable Unavailable DEMI FERNANDEZ MD Purpose Continuity of Care Document - 05-22-2013 through 2016 Problems Code Diagnosis DOS Provider Status 250.01 250.01 DIAB 05-22-2013 [facility], TYPE Hospital I [JUVENILE TYPE], NOT UNCNTRLD 305.1 305.1 05-22-2013 [place] TOBACCO USE [facility] DISORDER Hospital 401.9 401.9 05-22-2013 [place] HYPERTENSIO [facility] N NOS Hospital 491.9 491.9 05-22-2013 [place] CHRONIC [facility] BRONCHITIS Hospital NOS 493.90 493.90 05-22-2013 [place] ASTHMA, [facility] UNSPECIFIED Hospital 786.2 786.2 COUGH 05-22-2013 [facility] 786.50 786.50 05-22-2013 [facility] CHEST PAIN [facility] Hospital 789.06 789.06 05-22-2013 [facility] ABDOMINAL [facility], Hospital EPIGASTRIC C34.90 MALIGNANT NEOPLASM OF UNSP [...] WILLIAM FERNANDEZ (ER) 3 10:50 3 14:21 [facility] DEMI
--- OUTSIDE RECORDS SUMMARY | 2017-06-22 00:51 | External Medical Summary Rpt ---
Author Author , DEDRICK TSE Address Unknown Phone [email or web address] Immunization Name Date Rout CVX Reac Dose [...]
--- OUTSIDE RECORDS SUMMARY | 2017-06-22 00:53 | External Medical Summary Rpt ---
Author Author [employer], [employer] Organization [employer] Address Unknown Phone Unavailable Results Viral susceptibility panel in Isolate Observa Value Referen Units Interpr Notes Date tion ce etation Range Ampicilli No ug/ml Resistant No Sep 4 n informati informati 2017 6:17 [Suscepti on in on in AM bility] source source by data data Minimum inhibitor y concentra tion (EMETERIO) Amoxicill No ug/ml Susceptib No Sep 4 in+Clavul informati le informati 2017 6:17 anate on in on in AM [Suscepti source source bility] data data by Minimum inhibitor y concentra tion (EMETERIO) Ceftazidi No ug/ml Susceptib No Sep 4 me+Clavul informati le informati 2017 6:17 anate on in on in AM [Suscepti source source bility] data data by Minimum inhibitor y concentra tion (EMETERIO) Ceftriaxo No ug/ml Susceptib No Sep 4 ne informati le informati 2017 6:17 [Suscepti on in on in AM bility] source source by data data Minimum inhibitor y concentra tion (EMETERIO) Cefazolin No ug/ml Susceptib No Sep 4 informati le informati 2017 6:17 [Suscepti on in on in AM bility] source source by data data Minimum inhibitor y concentra tion (EMETERIO) Beta No ug/ml No No Sep 4 lactamase informati informati informati 2017 6:17 .extended on in on in on in AM spectrum source source source data data data [Suscepti bility] Ertapenem No ug/ml Susceptib No Sep 4 informati le informati 2017 6:17 [Suscepti on in on in AM bility] source source by data data Minimum inhibitor y concentra tion (EMETERIO) Cefepime No ug/ml Susceptib No Sep 4 [Suscepti informati le informati 2017 6:17 bility] on in on in AM by source source Minimum data data inhibitor y concentra tion (EMETERIO) Nitrofura No ug/ml Susceptib No Sep 4 ntoin informati le informati 2017 6:17 [Suscepti on in on in AM bility] source source by data data Minimum inhibitor y concentra tion (EMETERIO) Gentamici No ug/ml Resistant No Sep 4 n informati informati 2017 6:17 [Suscepti on in on in AM bility] source source by data data Minimum inhibitor y concentra tion (EMETERIO) Imipenem No ug/ml Susceptib No Sep 4 [Suscepti informati le informati 2017 6:17 bility] on in on in AM by source source Minimum data data inhibitor y concentra tion (EMETERIO) Levofloxa No ug/ml Resistant No Sep 4 davy informati informati 2017 6:17 [Suscepti on in on in AM bility] source source by data data Minimum inhibitor y concentra tion (EMETERIO) Ampicilli No ug/ml Intermedi No Sep 4 n+Sulbact informati ate informati 2017 6:17 am on in on in AM [Suscepti source source bility] data data by Minimum inhibitor y concentra tion (EMETERIO) Trimethop No ug/ml Resistant No Sep 4 rim+Sulfa informati informati 2017 6:17 methoxazo on in on in AM le source source [Suscepti data data bility] by Minimum inhibitor y concentra tion (EMETERIO) Tobramyci No ug/ml Intermedi No Sep 4 n informati ate informati 2017 6:17 [Suscepti on in on in AM bility] source source by data data Minimum inhibitor y concentra tion (EMETERIO) Piperacil No ug/ml Susceptib No Sep 4 solo+Tazob informati le informati 2017 6:17 actam on in on in AM [Suscepti source source bility] data data by Minimum inhibitor y concentra tion (EMETERIO) Glucose [Mass/volume] in Capillary blood by Glucometer Observa Value Referen Units Interpr Notes Date tion ce etation Range Glucose 70 - 110 mg/dl Normal No Sep 2 [Mass/vol informati 2017 ume] in on in 12:20 PM Capillary source blood by data Glucomete r Basic metabolic panel in Blood Observa Value Referen Units Interpr Notes Date tion ce etation Range Urea 7 - 18 mg/dL Normal No Sep 2 nitrogen informati 2017 6:30 [Mass/vol on in AM ume] in source Serum or data Plasma Calcium 8.5 - mg/dL Low No Sep 2 [Mass/vol 10.1 informati 2017 6:30 ume] in on in AM Serum or source Plasma data Chloride 98 - 107 mmoL/L High No Sep 2 [Moles/vo informati 2017 6:30 lume] in on in AM Serum or source Plasma data Carbon 21.0 - mmoL/L Normal No Sep 2 dioxide, 32.0 informati 2017 6:30 total on in AM [Moles/vo source lume] in data Serum or Plasma Creatinin 0.55 - mg/dL Normal No Sep 2 e 1.02 informati 2017 6:30 [Mass/vol on in AM ume] in source Serum or data Plasma Creatinin 50 - 200 ML/MIN Normal No Sep 2 e renal informati 2017 6:30 clearance on in AM source predicted data by Cockcroft -Gault formula Estimated 59- ML/MIN No REFERENCE Sep 2 informati RANGE: 2017 6:30 glomerula on in >60 AM r source ML/MIN/1. filtratio data 73 SQUARE n rate METERSIf (GF this patient is -A merican, then multiply theresult by 1.210. Glucose 74 - 106 mg/dL High No Sep 2 [Mass/vol informati 2017 6:30 ume] in on in AM Serum or source Plasma data Potassium 3.5 - 5.1 mmoL/L Normal No Sep 2 informati 2017 6:30 [Moles/vo on in AM lume] in source Serum or data Plasma Sodium 136 - 145 mmoL/L Normal No Sep 2 [Moles/vo informati 2017 6:30 lume] in on in AM Serum or source Plasma data Creatine kinase [Enzymatic activity/volume] in Serum or Plasma Observa Value Referen Units Interpr Notes Date tion ce etation Range Creatine 26 - 192 U/L High No Sep 2 kinase informati 2017 6:30 [Enzymati on in AM c source activity/ data volume] in Serum or Plasma Bacteria identified in Urine by Culture Observa Value Referen Units Interpr Notes Date tion ce etation Range Bacteri Escheri No No No No Sep 2 a marcia informa informa informa informa 2017 identif coli tion in tion in tion in tion in 6:09 AM ied in source source source source Urine data data data data by Culture Urinalysis dipstick W Reflex Microscopic panel in Urine Observa Value Referen Units Interpr Notes Date tion ce etation Range Appeara CLEAR CLEAR No No No Sep 2 nce of informa informa informa 2017 Urine tion in tion in tion in 6:09 AM source source source data data data Bacteri 4+ O No No No Sep 2 a informa informa informa 2016 [Presen tion in tion in tion in 6:09 AM ce] in source source source Urine data data data sedimen t by Light microsc opy Bilirub NEGATIV NEG No No No Sep 2 in E informa informa informa 2016 [Presen tion in tion in tion in 6:09 AM ce] in source source source Urine data data data by Test strip Erythro 2+ NEG No Abnorma No Sep 2 cytes informa l informa 2016 [Presen tion in tion in 6:09 AM ce] in source source Urine data data Color YELLOW YELLOW No No No Sep 2 of informa informa informa 2016 Urine tion in tion in tion in 6:09 AM source source source data data data Glucose NEG No No No Sep 2 [Mass/vol informati informati informati 2017 6:09 ume] in on in on in on in AM Urine by source source source Test data data data strip Ketones NEGATIV NEG mg/dL No No Sep 2 E informa informa 2016 [Presen tion in tion in 6:09 AM ce] in source source Urine data data by Automat ed test strip Mucus TRACE NEG No Abnorma No Sep 2 [Presen informa l informa 2016 ce] in tion in tion in 6:09 AM Urine source source sedimen data data t by Light microsc opy Nitrite POSITIV NEG No Abnorma No Sep 2 E informa l informa 2016 [Presen tion in tion in 6:09 AM ce] in source source Urine data data by Test strip pH of 5.0 - 8.5 No Normal No Sep 2 Urine informati informati 2017 6:09 on in on in AM source source data data Protein NEG mg/dL No No Sep 2 [Mass/vol informati informati 2017 6:09 ume] in on in on in AM Urine by source source Automated data data test strip Erythro 5-10 0 rbc/hpf No No Sep 2 cytes informa informa 2017 [Presen tion in tion in 6:09 AM ce] in source source Urine data data sedimen t by Light microsc opy Specific 1.005 - No Normal No Sep 2 gravity 1.030 informati informati 2017 6:09 of Urine on in on in AM source source data data Epithel 3-5 0 - 5 #/hpf No No Sep 2 ial informa informa 2017 cells.s tion in tion in 6:09 AM quamous source source data data [Presen ce] in Urine sedimen t by Microsc opy high power field Urobili 0.2 NEG E.U./dL No No Sep 2 nogen informa informa 2016 [Presen tion in tion in 6:09 AM ce] in source source Urine data data by Test strip Leukocy [5 O wbc/hpf No No Sep 2 maritza wbc/hpf informa informa 2016 [#/volu ; 10 tion in tion in 6:09 AM me] in wbc/hpf source source Urine ] data data Urinalysis dipstick W Reflex Microscopic panel in Urine Observa Value Referen Units Interpr Notes Date tion ce etation Range Appeara CLEAR CLEAR No No No Sep 2 nce of informa informa informa 2017 Urine tion in tion in tion in 6:09 AM source source source data data data Bilirub NEGATIV NEG No No No Sep 2 in E informa informa informa 2016 [Presen tion in tion in tion in 6:09 AM ce] in source source source Urine data data data by Test strip Erythro 2+ NEG No Abnorma No Sep 2 cytes informa l informa 2016 [Presen tion in tion in 6:09 AM ce] in source source Urine data data Color YELLOW YELLOW No No No Sep 2 of informa informa informa 2017 Urine tion in tion in tion in 6:09 AM source source source data data data Glucose NEG No No No Sep 2 [Mass/vol informati informati informati 2017 6:09 ume] in on in on in on in AM Urine by source source source Test data data data strip Ketones NEGATIV NEG mg/dL No No Sep 2 E informa informa 2017 [Presen tion in tion in 6:09 AM ce] in source source Urine data data by Automat ed test strip Mucus TRACE NEG No Abnorma No Sep 2 [Presen informa l informa 2016 ce] in tion in tion in 6:09 AM Urine source source sedimen data data t by Light microsc opy Nitrite POSITIV NEG No Abnorma No Sep 2 E informa l informa 2017 [Presen tion in tion in 6:09 AM ce] in source source Urine data data by Test strip pH of 5.0 - 8.5 No Normal No Sep 2 Urine informati informati 2017 6:09 on in on in AM source source data data Protein NEG mg/dL No No Sep 2 [Mass/vol informati informati 2017 6:09 ume] in on in on in AM Urine by source source Automated data data test strip Specific 1.005 - No Normal No Sep 2 gravity 1.030 informati informati 2017 6:09 of Urine on in on in AM source source data data Urobili 0.2 NEG E.U./dL No No Sep 2 nogen informa informa 2016 [Presen tion in tion in 6:09 AM ce] in source source Urine data data by Test strip Glucose [Mass/volume] in Capillary blood by Glucometer Observa Value Referen Units Interpr Notes Date tion ce etation Range Glucose 70 - 110 mg/dl High No Sep 2 [Mass/vol informati 2017 6:00 ume] in on in AM Capillary source blood by data Glucomete r Glucose [Mass/volume] in Capillary blood by Glucometer Observa Value Referen Units Interpr Notes Date ti ce etation Range Glucose 70 - 110 mg/dl Normal No Sep 1 [Mass/vol informati 2016 9:12 ume] in on in PM Capillary source blood by data Glucomete r CBC W Auto Differential panel in Blood Observa Value Referen Units Interpr Notes Date tion ce etation Range Basophils 0 - 0.2 K/MM3 Normal No Sep 1 informati 2017 7:05 [#/volume on in PM ] in source Blood by data Automated count Basophils 0.1 - 2.0 % Normal No Sep 1 /100 informati 2017 7:05 leukocyte on in PM s in source Blood by data Automated count Eosinophi 0.0 - 0.4 K/mm3 Normal No Sep 1 ls informati 2017 7:05 [#/volume on in PM ] in source Blood by data Automated count Eosinophi 0.1 - % Normal No Sep 1 ls/100 12.0 informati 2017 7:05 leukocyte on in PM s in source Blood by data Automated count Granulocy 1.8 - 7.8 K/mm3 Normal No Sep 1 maritza informati 2017 7:05 [#/volume on in PM ] in source Blood by data Automated count Granulocy 37.0 - % Normal No Sep 1 maritza/100 80.0 informati 2016 7:05 leukocyte on in PM s in source Blood by data Automated count Hematocri 37.0 - % Low No Sep 1 t [Volume 47.0 informati 2017 7:05 on in PM Fraction] source of Blood data Hemoglobi 12.2 - g/dL Low No Sep 1 n 16.2 informati 2017 7:05 [Mass/vol on in PM ume] in source Blood data Lymphocyt 0.7 - 4.5 K/mm3 Normal No Sep 1 es informati 2017 7:05 [#/volume on in PM ] in source Unspecifi data ed specimen by Automated count Lymphocyt 10 - 50.0 % Normal No Sep 1 es informati 2017 7:05 [#/volume on in PM ] in source Unspecifi data ed specimen by Automated count Erythrocy 27 - 31.2 pg Normal No Sep 1 te mean informati 2017 7:05 corpuscul on in PM ar source hemoglobi data n [Entitic mass] Erythrocy 31.8 - g/dl Normal No Sep 1 te mean 35.4 informati 2017 7:05 corpuscul on in PM ar source hemoglobi data n concentra tion [Mass/vol ume] by Automated count Erythrocy 82.2 - fl Normal No Sep 1 te mean 97.8 informati 2017 7:05 corpuscul on in PM ar volume source [Entitic data volume] by Automated count Monocytes 0.1 - 1.0 K/mm3 Normal No Sep 1 informati 2016 7:05 [#/volume on in PM ] in source Blood by data Automated count Monocytes 1.7 - 9.3 % Normal No Sep 1 /100 informati 2016 7:05 leukocyte on in PM s in source Blood by data Automated count Platelet 7.4 - fl Normal No Sep 1 mean 10.4 informati 2016 7:05 volume on in PM [Entitic source volume] data in Blood by Automated count Platelets 142 - 424 K/mm3 Normal No Sep 1 informati 2016 7:05 [#/volume on in PM ] in source Blood data Erythrocy 4.2 - 5.4 M/mm3 Low No Sep 1 maritza informati 2016 7:05 [#/volume on in PM ] in source Amniotic data fluid Erythrocy 11.5 - % Normal No Sep 1 te 17.5 informati 2016 7:05 distribut on in PM ion width source [Entitic data volume] by Automated count Leukocyte 4.8 - K/MM3 Normal No Sep 1 s 10.8 informati 2017 7:05 [#/volume on in PM ] in source Blood data Comprehensive metabolic 2000 panel in Serum or Plasma Observa Value Referen Units Interpr Notes Date tion ce etation Range Albumin/G 1.1 - 1.8 No Low No May 10 lobulin informati informati 2016 [Mass on in on in 11:05 AM ratio] in source source Serum or data data Plasma Albumin 3.4 - 5.0 gm/dL Normal No May 10 [Mass/vol informati 2016 ume] in on in 11:05 AM Serum or source Plasma data Alkaline 46 - 116 U/L Normal No May 10 phosphata informati 2016 se on in 11:05 AM [Enzymati source c data activity/ volume] in Serum or Plasma Bilirubin 0.2 - 1.0 mg/dL Normal No May 10 .total informati 2016 [Mass/vol on in 11:05 AM ume] in source Serum or data Plasma Urea 7 - 18 mg/dL Normal No May 10 nitrogen informati 2016 [Mass/vol on in 11:05 AM ume] in source Serum or data Plasma Calcium 8.5 - mg/dL Normal No May 10 [Mass/vol 10.1 informati 2016 ume] in on in 11:05 AM Serum or source Plasma data Chloride 98 - 107 mmoL/L Normal No May 10 [Moles/vo informati 2016 lume] in on in 11:05 AM Serum or source Plasma data Carbon 21.0 - mmoL/L Normal No May 10 dioxide, 32.0 informati 2016 total on in 11:05 AM [Moles/vo source lume] in data Serum or Plasma Creatinin 0.55 - mg/dL Normal No May 10 e 1.02 informati 2016 [Mass/vol on in 11:05 AM ume] in source Serum or data Plasma Creatinin 50 - 200 ML/MIN Normal No May 10 e renal 2016 clearance on in 11:05 AM source predicted data by Cockcroft -Gault formula Estimated 59- ML/MIN No REFERENCE May 10 informati RANGE: 2017 glomerula on in >60 11:05 AM r source ML/MIN/1. filtratio data 73 SQUARE n rate METERSIf (GF this patient is -A merican, then multiply theresult by 1.210. Globulin 1.3 - 3.2 gm/dL High No May 10 [Mass/vol informati 2016 ume] in on in 11:05 AM Serum source data Glucose 74 - 106 mg/dL High No May 10 [Mass/vol informati 2016 ume] in on in 11:05 AM Serum or source Plasma data Potassium 3.5 - 5.1 mmoL/L Normal No May 102016 [Moles/vo on in 11:05 AM lume] in source Serum or data Plasma Sodium 136 - 145 mmoL/L Normal No May 10 [Moles/vo informati 2016 lume] in on in 11:05 AM Serum or source Plasma data Aspartate 15 - 37 U/L Normal No May 102016 aminotran on in 11:05 AM sferase source [Enzymati data c activity/ volume] in Serum or Plasma Alanine 12 - 78 U/L Normal No May 10 aminotran 2016 sferase on in 11:05 AM [Enzymati source c data activity/ volume] in Serum or Plasma Protein 6.4 - 8.2 gm/dL Normal No May 10 [Mass/vol informati 2016 ume] in on in 11:05 AM Serum or source Plasma data CBC W Auto Differential panel in Blood Observa Value Referen Units Interpr Notes Date tion ce etation Range Basophils 0 - 0.2 K/MM3 Normal No May 102016 [#/volume on in 11:05 AM ] in source Blood by data Automated count Basophils 0.1 - 2.0 % Normal No May 10 /100 2016 leukocyte on in 11:05 AM s in source Blood by data Automated count Eosinophi 0.0 - 0.4 K/mm3 Normal No May 10 ls 2016 [#/volume on in 11:05 AM ] in source Blood by data Automated count Eosinophi 0.1 - % Normal No May 10 ls/100 12.0 informati 2016 leukocyte on in 11:05 AM s in source Blood by data Automated count Granulocy 1.8 - 7.8 K/mm3 Normal No May 10 maritza informati 2016 [#/volume on in 11:05 AM ] in source Blood by data Automated count Granulocy 37.0 - % Normal No May 10 maritza/100 80.0 informati 2016 leukocyte on in 11:05 AM s in source Blood by data Automated count Hematocri 37.0 - % Normal No May 10 t [Volume 47.0 informati 2016 on in 11:05 AM Fraction] source of Blood data Hemoglobi 12.2 - g/dL Normal No May 10 n 16.2 informati 2016 [Mass/vol on in 11:05 AM ume] in source Blood data Lymphocyt 0.7 - 4.5 K/mm3 Normal No May 10 es informati 2016 [#/volume on in 11:05 AM ] in source Unspecifi data ed specimen by Automated count Lymphocyt 10 - 50.0 % Normal No May 10 es informati 2016 [#/volume on in 11:05 AM ] in source Unspecifi data ed specimen by Automated count Erythrocy 27 - 31.2 pg High No May 10 te mean inform2016 corpuscul on in 11:05 AM ar source hemoglobi data n [Entitic mass] Erythrocy 31.8 - g/dl Normal No May 10 te mean 35.4 inform2016 corpuscul on in 11:05 AM ar source hemoglobi data n concentra tion [Mass/vol ume] by Automated count Erythrocy 82.2 - fl Normal No May 10 te mean 97.8 informati 2016 corpuscul on in 11:05 AM ar volume source [Entitic data volume] by Automated count Monocytes 0.1 - 1.0 K/mm3 Normal No May 10 informati 2016 [#/volume on in 11:05 AM ] in source Blood by data Automated count Monocytes 1.7 - 9.3 % Normal No May 10 /100 informati 2017 leukocyte on in 11:05 AM s in source Blood by data Automated count Platelet 7.4 - fl Normal No May 10 mean 10.4 informati 2016 volume on in 11:05 AM [Entitic source volume] data in Blood by Automated count Platelets 142 - 424 K/mm3 Normal No May 102016 [#/volume on in 11:05 AM ] in source Blood data Erythrocy 4.2 - 5.4 M/mm3 Low No May 10 maritza inform2016 [#/volume on in 11:05 AM ] in source Amniotic data fluid Erythrocy 11.5 - % Normal No May 10 te 17.5 2016 distribut on in 11:05 AM ion width source [Entitic data volume] by Automated count Leukocyte 4.8 - K/MM3 Low No May 10 s 10.8 2016 [#/volume on in 11:05 AM ] in source Blood data Natriutietic peptide B [Mass/volume] in Serum or Plasma Observa Value Referen Units Interpr Notes Date tion ce etation Range Natriutie 0 - 100 pg/mL Normal No Apr 01 tic 2016 7:35 peptide B on in PM source [Mass/vol data ume] in Serum or Plasma Lactate [Moles/volume] in Blood Observa Value Referen Units Interpr Notes Date tion ce etation Range Lactate 0.4 - 2.0 mmol/L Normal No Apr 01 [Moles/vo ati 2016 7:35 lume] in on in PM Blood source data Urinalysis dipstick W Reflex Microscopic panel in Urine Observa Value Referen Units Interpr Notes Date tion ce etation Range Appeara CLEAR CLEAR No No No Apr 01 nce of informa informa informa 2016 Urine tion in tion in tion in 7:35 PM source source source data data data Bacteri TRACE O No No No Apr 01 a informa informa informa 2016 [Presen tion in tion in tion in 7:35 PM ce] in source source source Urine data data data sedimen t by Light microsc opy Bilirub NEGATIV NEG No No No Apr 01 in E informa informa informa 2016 [Presen tion in tion in tion in 7:35 PM ce] in source source source Urine data data data by Test strip Erythro TRACE-I NEG No No No Apr 01 cytes NTACT informa informa informa 2016 [Presen tion in tion in tion in 7:35 PM ce] in source source source Urine data data data Color YELLOW YELLOW No No No Apr 01 of informa informa informa 2016 Urine tion in tion in tion in 7:35 PM source source source data data data Glucose NEG No No No Apr 01 [Mass/vol informati informati informati 2017 7:35 ume] in on in on in on in PM Urine by source source source Test data data data strip Ketones NEGATIV NEG mg/dL No No Apr 01 E informa informa 2016 [Presen tion in tion in 7:35 PM ce] in source source Urine data data by Automat ed test strip Mucus TRACE NEG No Abnorma No Apr 01 [Presen informa l informa 2016 ce] in tion in tion in 7:35 PM Urine source source sedimen data data t by Light microsc opy Nitrite NEGATIV NEG No No No Apr 01 E informa informa informa 2016 [Presen tion in tion in tion in 7:35 PM ce] in source source source Urine data data data by Test strip pH of 5.0 - 8.5 No Normal No Apr 01 Urine informati informati 2016 7:35 on in on in PM source source data data Protein NEG mg/dL No No Apr 01 [Mass/vol informati informati 2016 7:35 ume] in on in on in PM Urine by source source Automated data data test strip Erythro NONE 0 rbc/hpf No No Apr 01 cytes informa informa 2016 [Presen tion in tion in 7:35 PM ce] in source source Urine data data sedimen t by Light microsc opy Specific 1.005 - No Normal No Apr 01 gravity 1.030 informati informati 2016 7:35 of Urine on in on in PM source source data data Epithel OCC 0 - 5 #/hpf No No Apr 01 ial informa informa 2017 cells.s tion in tion in 7:35 PM quamous source source data data [Presen ce] in Urine sedimen t by Microsc opy high power field Urobili 0.2 NEG E.U./dL No No Apr 01 nogen informa informa 2016 [Presen tion in tion in 7:35 PM ce] in source source Urine data data by Test strip Leukocyte O wbc/hpf No No Apr 01 s informati informati 2017 7:35 [#/volume on in on in PM ] in source source Urine data data Urinalysis dipstick W Reflex Microscopic panel in Urine Observa Value Referen Units Interpr Notes Date tion ce etation Range Appeara CLEAR CLEAR No No No Apr 01 nce of informa informa informa 2016 Urine tion in tion in tion in 7:35 PM source source source data data data Bilirub NEGATIV NEG No No No Apr 01 in E informa informa informa 2016 [Presen tion in tion in tion in 7:35 PM ce] in source source source Urine data data data by Test strip Erythro TRACE-I NEG No No No Apr 01 cytes NTACT informa informa informa 2016 [Presen tion in tion in tion in 7:35 PM ce] in source source source Urine data data data Color YELLOW YELLOW No No No Apr 01 of informa informa informa 2016 Urine tion in tion in tion in 7:35 PM source source source data data data Glucose NEG No No No Apr 01 [Mass/vol informati informati informati 2016 7:35 ume] in on in on in on in PM Urine by source source source Test data data data strip Ketones NEGATIV NEG mg/dL No No Apr 01 E informa informa 2016 [Presen tion in tion in 7:35 PM ce] in source source Urine data data by Automat ed test strip Mucus TRACE NEG No Abnorma No Apr 01 [Presen informa l inform2016 ce] in tion in tion in 7:35 PM Urine source source sedimen data data t by Light microsc opy Nitrite NEGATIV NEG No No No Apr 01 E informa informa informa 2016 [Presen tion in tion in tion in 7:35 PM ce] in source source source Urine data data data by Test strip pH of 5.0 - 8.5 No Normal No Apr 01 Urine informati informati 2017 7:35 on in on in PM source source data data Protein NEG mg/dL No No Apr 01 [Mass/vol informati informati 2016 7:35 ume] in on in on in PM Urine by source source Automated data data test strip Specific 1.005 - No Normal No Apr 01 gravity 1.030 informati informati 2017 7:35 of Urine on in on in PM source source data data Urobili 0.2 NEG E.U./dL No No Apr 01 nogen informa informa 2016 [Presen tion in tion in 7:35 PM ce] in source source Urine data data by Test strip CBC W Auto Differential panel in Blood Observa Value Referen Units Interpr Notes Date tion ce etation Range Basophils 0 - 0.2 K/MM3 Normal No Apr 01 inform2016 7:35 [#/volume on in PM ] in source Blood by data Automated count Basophils 0.1 - 2.0 % Normal No Apr 01 informati 2016 7:35 leukocyte on in PM s in source Blood by data Automated count Eosinophi 0.0 - 0.4 K/mm3 Normal No Apr 01 ls informati 2016 7:35 [#/volume on in PM ] in source Blood by data Automated count Eosinophi 0.1 - % Normal No Apr 01 ls/100 12.0 informati 2016 7:35 leukocyte on in PM s in source Blood by data Automated count Granulocy 1.8 - 7.8 K/mm3 Normal No Apr 01 maritza informati 2016 7:35 [#/volume on in PM ] in source Blood by data Automated count Granulocy 37.0 - % Normal No Apr 01 maritza/100 80.0 informati 2016 7:35 leukocyte on in PM s in source Blood by data Automated count Hematocri 37.0 - % Normal No Apr 01 t [Volume 47.0 informati 2016 7:35 on in PM Fraction] source of Blood data Hemoglobi 12.2 - g/dL Normal No Apr 01 n 16.2 informati 2016 7:35 [Mass/vol on in PM ume] in source Blood data Lymphocyt 0.7 - 4.5 K/mm3 Normal No Apr 01 es informati 2016 7:35 [#/volume on in PM ] in source Unspecifi data ed specimen by Automated count Lymphocyt 10 - 50.0 % Normal No Apr 01 es informati 2016 7:35 [#/volume on in PM ] in source Unspecifi data ed specimen by Automated count Erythrocy 27 - 31.2 pg High No Apr 01 te mean informati 2016 7:35 corpuscul on in PM ar source hemoglobi data n [Entitic mass] Erythrocy 31.8 - g/dl Normal No Apr 01 te mean 35.4 informati 2016 7:35 corpuscul on in PM ar source hemoglobi data n concentra tion [Mass/vol ume] by Automated count Erythrocy 82.2 - fl High No Apr 01 te mean 97.8 informati 2016 7:35 corpuscul on in PM ar volume source [Entitic data volume] by Automated count Monocytes 0.1 - 1.0 K/mm3 Normal No Apr 01 informati 2016 7:35 [#/volume on in PM ] in source Blood by data Automated count Monocytes 1.7 - 9.3 % Normal No Apr 01 /100 informati 2017 7:35 leukocyte on in PM s in source Blood by data Automated count Platelet 7.4 - fl Normal No Apr 01 mean 10.4 informati 2016 7:35 volume on in PM [Entitic source volume] data in Blood by Automated count Platelets 142 - 424 K/mm3 Normal No Apr 01 informati 2016 7:35 [#/volume on in PM ] in source Blood data Erythrocy 4.2 - 5.4 M/mm3 Low No Apr 01 maritza informati 2016 7:35 [#/volume on in PM ] in source Amniotic data fluid Erythrocy 11.5 - % Normal No Apr 01 te 17.5 informati 2016 7:35 distribut on in PM ion width source [Entitic data volume] by Automated count Leukocyte 4.8 - K/MM3 Low No Apr 01 s 10.8 ati 2016 7:35 [#/volume on in PM ] in source Blood data Comprehensive metabolic 2000 panel in Serum or Plasma Observa Value Referen Units Interpr Notes Date tion ce etation Range Albumin/G 1.1 - 1.8 No Low No Mar 20 lobulin informati informati 2016 4:30 [Mass on in on in PM ratio] in source source Serum or data data Plasma Albumin 3.4 - 5.0 gm/dL Normal No Mar 20 [Mass/vol informati 2016 4:30 ume] in on in PM Serum or source Plasma data Alkaline 46 - 116 U/L Normal No Mar 20 phosphata informati 2016 4:30 se on in PM [Enzymati source c data activity/ volume] in Serum or Plasma Bilirubin 0.2 - 1.0 mg/dL Normal No Mar 20 .total informati 2016 4:30 [Mass/vol on in PM ume] in source Serum or data Plasma Urea 7 - 18 mg/dL Normal No Mar 20 nitrogen informati 2016 4:30 [Mass/vol on in PM ume] in source Serum or data Plasma Calcium 8.5 - mg/dL Low No Mar 20 [Mass/vol 10.1 informati 2016 4:30 ume] in on in PM Serum or source Plasma data Chloride 98 - 107 mmoL/L Normal No Mar 20 [Moles/vo informati 2016 4:30 lume] in on in PM Serum or source Plasma data Carbon 21.0 - mmoL/L Normal No Mar 20 dioxide, 32.0 informati 2016 4:30 total on in PM [Moles/vo source lume] in data Serum or Plasma Creatinin 0.55 - mg/dL High No Mar 20 e 1.02 informati 2016 4:30 [Mass/vol on in PM ume] in source Serum or data Plasma Estimated 59- ML/MIN Low REFERENCE Mar 20 RANGE: 2016 4:30 glomerula >60 PM r ML/MIN/1. filtratio 73 SQUARE n rate METERSIf (GF this patient is -A merican, then multiply theresult by 1.210. Globulin 1.3 - 3.2 gm/dL High No Mar 20 [Mass/vol informati 2016 4:30 ume] in on in PM Serum source data Glucose 74 - 106 mg/dL Normal No Mar 20 [Mass/vol informati 2016 4:30 ume] in on in PM Serum or source Plasma data Potassium 3.5 - 5.1 mmoL/L Normal No Mar 202016 4:30 [Moles/vo on in PM lume] in source Serum or data Plasma Sodium 136 - 145 mmoL/L Normal No Mar 20 [Moles/vo informati 2016 4:30 lume] in on in PM Serum or source Plasma data Aspartate 15 - 37 U/L Normal No Mar 202016 4:30 aminotran on in PM sferase source [Enzymati data c activity/ volume] in Serum or Plasma Alanine 12 - 78 U/L Normal No Mar 20 aminotran inform2016 4:30 sferase on in PM [Enzymati source c data activity/ volume] in Serum or Plasma Protein 6.4 - 8.2 gm/dL Normal No Mar 20 [Mass/vol informati 2016 4:30 ume] in on in PM Serum or source Plasma data CBC W Auto Differential panel in Blood Observa Value Referen Units Interpr Notes Date tion ce etation Range Basophils 0 - 0.2 K/MM3 Normal No Mar 20 informati 2016 4:30 [#/volume on in PM ] in source Blood by data Automated count Basophils 0.1 - 2.0 % Normal No Mar 20 informati 2016 4:30 leukocyte on in PM s in source Blood by data Automated count Eosinophi 0.0 - 0.4 K/mm3 Normal No Mar 20 ls informati 2016 4:30 [#/volume on in PM ] in source Blood by data Automated count Eosinophi 0.1 - % Normal No Mar 20 ls/100 12.0 informati 2016 4:30 leukocyte on in PM s in source Blood by data Automated count Granulocy 1.8 - 7.8 K/mm3 Normal No Mar 20 maritza informati 2016 4:30 [#/volume on in PM ] in source Blood by data Automated count Granulocy 37.0 - % Normal No Mar 20 maritza/100 80.0 informati 2016 4:30 leukocyte on in PM s in source Blood by data Automated count Hematocri 37.0 - % Low No Mar 20 t [Volume 47.0 informati 2016 4:30 on in PM Fraction] source of Blood data Hemoglobi 12.2 - g/dL Low No Mar 20 n 16.2 informati 2016 4:30 [Mass/vol on in PM ume] in source Blood data Lymphocyt 0.7 - 4.5 K/mm3 Normal No Mar 20 es informati 2016 4:30 [#/volume on in PM ] in source Unspecifi data ed specimen by Automated count Lymphocyt 10 - 50.0 % Normal No Mar 20 es ati 2016 4:30 [#/volume on in PM ] in source Unspecifi data ed specimen by Automated count Erythrocy 27 - 31.2 pg High No Mar 20 te mean informati 2016 4:30 corpuscul on in PM ar source hemoglobi data n [Entitic mass] Erythrocy 31.8 - g/dl Normal Mar 20 te mean 35.4 informati 2016 4:30 corpuscul on in PM ar source hemoglobi data n concentra tion [Mass/vol ume] by Automated count Erythrocy 82.2 - fl High Mar 20 te mean 97.8 informati 2016 4:30 corpuscul on in PM ar volume source [Entitic data volume] by Automated count Monocytes 0.1 - 1.0 K/mm3 Normal No Mar 20 informati 2016 4:30 [#/volume on in PM ] in source Blood by data Automated count Monocytes 1.7 - 9.3 % Normal No Mar 20 /100 informati 2016 4:30 leukocyte on in PM s in source Blood by data Automated count Platelet 7.4 - fl Normal No Mar 20 mean 10.4 informati 2016 4:30 volume on in PM [Entitic source volume] data in Blood by Automated count Platelets 142 - 424 K/mm3 Normal No Mar 20 informati 2016 4:30 [#/volume on in PM ] in source Blood data Erythrocy 4.2 - 5.4 M/mm3 Low No Mar 20 maritza informati 2016 4:30 [#/volume on in PM ] in source Amniotic data fluid Erythrocy 11.5 - % Normal No Mar 20 te 17.5 informati 2016 4:30 distribut on in PM ion width source [Entitic data volume] by Automated count Leukocyte 4.8 - K/MM3 Low No Mar 20 s 10.8 informati 2016 4:30 [#/volume on in PM ] in source Blood data Comprehensive metabolic 2000 panel in Serum or Plasma Observa Value Referen Units Interpr Notes Date tion ce etation Range Albumin/G 1.1 - 1.8 No Low No February 12 lobulin informati informati 2016 [Mass on in on in 11:10 AM ratio] in source source Serum or data data Plasma Albumin 3.4 - 5.0 gm/dL Low No February 12 [Mass/vol informati 2016 ume] in on in 11:10 AM Serum or source Plasma data Alkaline 46 - 116 U/L Normal No February 12 phosphata informati 2016 se on in 11:10 AM [Enzymati source c data activity/ volume] in Serum or Plasma Bilirubin 0.2 - 1.0 mg/dL Normal No February 12 .total informati 2016 [Mass/vol on in 11:10 AM ume] in source Serum or data Plasma Urea 7 - 18 mg/dL Normal No February 12 nitrogen informati 2016 [Mass/vol on in 11:10 AM ume] in source Serum or data Plasma Calcium 8.5 - mg/dL Low No February 12 [Mass/vol 10.1 informati 2016 ume] in on in 11:10 AM Serum or source Plasma data Chloride 98 - 107 mmoL/L Normal No February 12 [Moles/vo informati 2016 lume] in on in 11:10 AM Serum or source Plasma data Carbon 21.0 - mmoL/L Normal No February 12 dioxide, 32.0 2016 total on in 11:10 AM [Moles/vo source lume] in data Serum or Plasma Creatinin 0.55 - mg/dL High No February 12 e 1.02 inform2016 [Mass/vol on in 11:10 AM ume] in source Serum or data Plasma Estimated 59- ML/MIN Low REFERENCE February 12 RANGE: 2016 glomerula >60 11:10 AM r ML/MIN/1. filtratio 73 SQUARE n rate METERSIf (GF this patient is -A merican, then multiply theresult by 1.210. Globulin 1.3 - 3.2 gm/dL High No February 12 [Mass/vol informati 2016 ume] in on in 11:10 AM Serum source data Glucose 74 - 106 mg/dL High No February 12 [Mass/vol informati 2016 ume] in on in 11:10 AM Serum or source Plasma data Potassium 3.5 - 5.1 mmoL/L Normal No February 122016 [Moles/vo on in 11:10 AM lume] in source Serum or data Plasma Sodium 136 - 145 mmoL/L Normal No February 12 [Moles/vo informati 2017 lume] in on in 11:10 AM Serum or source Plasma data Aspartate 15 - 37 U/L Normal No February 122016 aminotran on in 11:10 AM sferase source [Enzymati data c activity/ volume] in Serum or Plasma Alanine 12 - 78 U/L Normal No February 12 aminotran 2016 sferase on in 11:10 AM [Enzymati source c data activity/ volume] in Serum or Plasma Protein 6.4 - 8.2 gm/dL Normal No February 12 [Mass/vol informati 2016 ume] in on in 11:10 AM Serum or source Plasma data CBC W Auto Differential panel in Blood Observa Value Referen Units Interpr Notes Date tion ce etation Range Basophils 0 - 0.2 K/MM3 Normal No February 122016 [#/volume on in 11:10 AM ] in source Blood by data Automated count Basophils 0.1 - 2.0 % Normal No February 12 /100 2016 leukocyte on in 11:10 AM s in source Blood by data Automated count Eosinophi 0.0 - 0.4 K/mm3 Normal No February 12 ls 2016 [#/volume on in 11:10 AM ] in source Blood by data Automated count Eosinophi 0.1 - % Normal No February 12 ls/100 12.0 inform2016 leukocyte on in 11:10 AM s in source Blood by data Automated count Granulocy 1.8 - 7.8 K/mm3 Normal No February 12 maritza inform2016 [#/volume on in 11:10 AM ] in source Blood by data Automated count Granulocy 37.0 - % Normal No February 12 maritza/100 80.0 inform2016 leukocyte on in 11:10 AM s in source Blood by data Automated count Hematocri 37.0 - % Low February 12 t [Volume 47.0 informati 2016 on in 11:10 AM Fraction] source of Blood data Hemoglobi 12.2 - g/dL Low February 12 n 16.2 informati 2016 [Mass/vol on in 11:10 AM ume] in source Blood data Lymphocyt 0.7 - 4.5 K/mm3 Normal February 12 es informati 2016 [#/volume on in 11:10 AM ] in source Unspecifi data ed specimen by Automated count Lymphocyt 10 - 50.0 % Normal No February 12 es inform2016 [#/volume on in 11:10 AM ] in source Unspecifi data ed specimen by Automated count Erythrocy 27 - 31.2 pg High No February 12 te mean 2016 corpuscul on in 11:10 AM ar source hemoglobi data n [Entitic mass] Erythrocy 31.8 - g/dl Normal February 12 te mean 35.4 2016 corpuscul on in 11:10 AM ar source hemoglobi data n concentra tion [Mass/vol ume] by Automated count Erythrocy 82.2 - fl High February 12 te mean 97.8 informati 2016 corpuscul on in 11:10 AM ar volume source [Entitic data volume] by Automated count Monocytes 0.1 - 1.0 K/mm3 Normal February 12 inform2016 [#/volume on in 11:10 AM ] in source Blood by data Automated count Monocytes 1.7 - 9.3 % Normal No February 12 /100 informati 2016 leukocyte on in 11:10 AM s in source Blood by data Automated count Platelet 7.4 - fl Low February 12 mean 10.4 informati 2017 volume on in 11:10 AM [Entitic source volume] data in Blood by Automated count Platelets 142 - 424 K/mm3 Normal No February 12 informati 2016 [#/volume on in 11:10 AM ] in source Blood data Erythrocy 4.2 - 5.4 M/mm3 Low No February 12 maritza informati 2016 [#/volume on in 11:10 AM ] in source Amniotic data fluid Erythrocy 11.5 - % Normal No February 12 te 17.5 informati 2016 distribut on in 11:10 AM ion width source [Entitic data volume] by Automated count Leukocyte 4.8 - K/MM3 Low No February 12 s 10.8 informati 2016 [#/volume on in 11:10 AM ] in source Blood data Comprehensive metabolic 2000 panel in Serum or Plasma Observa Value Referen Units Interpr Notes Date tion ce etation Range Albumin/G 1.1 - 1.8 No Low No February 08 lobulin informati informati 2016 7:40 [Mass on in on in PM ratio] in source source Serum or data data Plasma Albumin 3.4 - 5.0 gm/dL No No February 08 [Mass/vol informati informati 2016 7:40 ume] in on in on in PM Serum or source source Plasma data data Alkaline 46 - 116 U/L Normal No February 08 phosphata informati 2016 7:40 se on in PM [Enzymati source c data activity/ volume] in Serum or Plasma Bilirubin 0.2 - 1.0 mg/dL Normal No February 08 .total informati 2016 7:40 [Mass/vol on in PM ume] in source Serum or data Plasma Urea 7 - 18 mg/dL Normal No February 08 nitrogen informati 2016 7:40 [Mass/vol on in PM ume] in source Serum or data Plasma Calcium 8.5 - mg/dL Low No February 08 [Mass/vol 10.1 informati 2016 7:40 ume] in on in PM Serum or source Plasma data Chloride 98 - 107 mmoL/L Normal No February 08 [Moles/vo informati 2016 7:40 lume] in on in PM Serum or source Plasma data Carbon 21.0 - mmoL/L Normal No February 08 dioxide, 32.0 informati 2016 7:40 total on in PM [Moles/vo source lume] in data Serum or Plasma Creatinin 0.55 - mg/dL High No February 08 e 1.02 informati 2016 7:40 [Mass/vol on in PM ume] in source Serum or data Plasma Creatinin 50 - 200 ML/MIN Normal No February 08 e renal informati 2016 7:40 clearance on in PM source predicted data by Cockcroft -Gault formula Estimated 59- ML/MIN Low REFERENCE February 08 RANGE: 2016 7:40 glomerula >60 PM r ML/MIN/1. filtratio 73 SQUARE n rate METERSIf (GF this patient is -A merican, then multiply theresult by 1.210. Globulin 1.3 - 3.2 gm/dL High No February 08 [Mass/vol informati 2016 7:40 ume] in on in PM Serum source data Glucose 74 - 106 mg/dL High No February 08 [Mass/vol informati 2016 7:40 ume] in on in PM Serum or source Plasma data Potassium 3.5 - 5.1 mmoL/L High February 08 alert 2016 7:40 [Moles/vo CRITICAL PM lume] in RESULTS Serum or Plasma RESU LTS CALLED TO: KITTY.AMS 02/08/172017 Tavia May nda Sodium 136 - 145 mmoL/L Normal No February 08 [Moles/vo informati 2016 7:40 lume] in on in PM Serum or source Plasma data Aspartate 15 - 37 U/L Normal No February 08 informati 2016 7:40 aminotran on in PM sferase source [Enzymati data c activity/ volume] in Serum or Plasma Alanine 12 - 78 U/L Normal No February 08 aminotran informati 2016 7:40 sferase on in PM [Enzymati source c data activity/ volume] in Serum or Plasma Protein 6.4 - 8.2 gm/dL No No February 08 [Mass/vol informati informati 2016 7:40 ume] in on in on in PM Serum or source source Plasma data data CBC W Auto Differential panel in Blood Observa Value Referen Units Interpr Notes Date tion ce etation Range Basophils 0 - 0.2 K/MM3 Normal No February 08 inform2016 7:40 [#/volume on in PM ] in source Blood by data Automated count Basophils 0.1 - 2.0 % Normal No February 08 informati 2016 7:40 leukocyte on in PM s in source Blood by data Automated count Eosinophi 0.0 - 0.4 K/mm3 Normal No February 08 ls informati 2016 7:40 [#/volume on in PM ] in source Blood by data Automated count Eosinophi 0.1 - % Normal No February 08 ls/100 12.0 informati 2016 7:40 leukocyte on in PM s in source Blood by data Automated count Granulocy 1.8 - 7.8 K/mm3 Normal No February 08 maritza informati 2016 7:40 [#/volume on in PM ] in source Blood by data Automated count Granulocy 37.0 - % Normal No February 08 maritza/ 80.0 informati 2016 7:40 leukocyte on in PM s in source Blood by data Automated count Hematocri 37.0 - % Low No February 08 t [Volume 47.0 informati 2016 7:40 on in PM Fraction] source of Blood data Hemoglobi 12.2 - g/dL Low No February 08 n 16.2 informati 2016 7:40 [Mass/vol on in PM ume] in source Blood data Lymphocyt 0.7 - 4.5 K/mm3 Normal No February 08 es informati 2016 7:40 [#/volume on in PM ] in source Unspecifi data ed specimen by Automated count Lymphocyt 10 - 50.0 % Normal No February 08 es informati 2016 7:40 [#/volume on in PM ] in source Unspecifi data ed specimen by Automated count Erythrocy 27 - 31.2 pg High No February 08 te mean informati 2016 7:40 corpuscul on in PM ar source hemoglobi data n [Entitic mass] Erythrocy 31.8 - g/dl Normal No February 08 te mean 35.4 informati 2016 7:40 corpuscul on in PM ar source hemoglobi data n concentra tion [Mass/vol ume] by Automated count Erythrocy 82.2 - fl High February 08 te mean 97.8 informati 2016 7:40 corpuscul on in PM ar volume source [Entitic data volume] by Automated count Monocytes 0.1 - 1.0 K/mm3 Normal No February 08 informati 2016 7:40 [#/volume on in PM ] in source Blood by data Automated count Monocytes 1.7 - 9.3 % Normal No May 26 /100 informati 2016 7:40 leukocyte on in PM s in source Blood by data Automated count Platelet 7.4 - fl Low No February 08 mean 10.4 informati 2016 7:40 volume on in PM [Entitic source volume] data in Blood by Automated count Platelets 142 - 424 K/mm3 Normal No February 08 informati 2016 7:40 [#/volume on in PM ] in source Blood data Erythrocy 4.2 - 5.4 M/mm3 Low No February 08 maritza informati 2016 7:40 [#/volume on in PM ] in source Amniotic data fluid Erythrocy 11.5 - % Normal February 08 te 17.5 informati 2016 7:40 distribut on in PM ion width source [Entitic data volume] by Automated count Leukocyte 4.8 - K/MM3 Low February 08 s 10.8 informati 2016 7:40 [#/volume on in PM ] in source Blood data Amylase [Enzymatic activity/volume] in Serum or Plasma Observa Value Referen Units Interpr Notes Date tion ce etation Range Amylase 25 - 115 U/L Normal No February 08 [Enzymati informati 2016 7:40 c on in PM activity/ source volume] data in Serum or Plasma Lipase [Enzymatic activity/volume] in Serum or Plasma Observa Value Referen Units Interpr Notes Date tion ce etation Range Lipase 73 - 393 U/L Low No February 08 [Enzymati informati 2016 7:40 c on in PM activity/ source volume] data in Serum or Plasma Comprehensive metabolic 2000 panel in Serum or Plasma Observa Value Referen Units Interpr Notes Date tion ce etation Range Albumin/G 1.1 - 1.8 No Low No February 04 lobulin informati informati 2016 9:00 [Mass on in on in AM ratio] in source source Serum or data data Plasma Albumin 3.4 - 5.0 gm/dL Low No February 04 [Mass/vol informati 2016 9:00 ume] in on in AM Serum or source Plasma data Alkaline 46 - 116 U/L Normal No February 04 phosphata informati 2016 9:00 se on in AM [Enzymati source c data activity/ volume] in Serum or Plasma Bilirubin 0.2 - 1.0 mg/dL Normal No February 04 .total informati 2016 9:00 [Mass/vol on in AM ume] in source Serum or data Plasma Urea 7 - 18 mg/dL Normal No February 04 nitrogen informati 2016 9:00 [Mass/vol on in AM ume] in source Serum or data Plasma Calcium 8.5 - mg/dL Normal No February 04 [Mass/vol 10.1 informati 2016 9:00 ume] in on in AM Serum or source Plasma data Chloride 98 - 107 mmoL/L Normal No February 04 [Moles/vo informati 2016 9:00 lume] in on in AM Serum or source Plasma data Carbon 21.0 - mmoL/L Normal No February 04 dioxide, 32.0 informati 2016 9:00 total on in AM [Moles/vo source lume] in data Serum or Plasma Creatinin 0.55 - mg/dL Normal No February 04 e 1.02 informati 2016 9:00 [Mass/vol on in AM ume] in source Serum or data Plasma Estimated 59- ML/MIN Low REFERENCE February 04 RANGE: 2016 9:00 glomerula >60 AM r ML/MIN/1. filtratio 73 SQUARE n rate METERSIf (GF this patient is -A merican, then multiply theresult by 1.210. Globulin 1.3 - 3.2 gm/dL High No February 04 [Mass/vol informati 2016 9:00 ume] in on in AM Serum source data Glucose 74 - 106 mg/dL High No February 04 [Mass/vol informati 2016 9:00 ume] in on in AM Serum or source Plasma data Potassium 3.5 - 5.1 mmoL/L Normal No February 04 informati 2016 9:00 [Moles/vo on in AM lume] in source Serum or data Plasma Sodium 136 - 145 mmoL/L Normal No February 04 [Moles/vo informati 2016 9:00 lume] in on in AM Serum or source Plasma data Aspartate 15 - 37 U/L Normal No February 04 informati 2016 9:00 aminotran on in AM sferase source [Enzymati data c activity/ volume] in Serum or Plasma Alanine 12 - 78 U/L Normal No February 04 aminotran informati 2016 9:00 sferase on in AM [Enzymati source c data activity/ volume] in Serum or Plasma Protein 6.4 - 8.2 gm/dL Normal No February 04 [Mass/vol informati 2016 9:00 ume] in on in AM Serum or source Plasma data CBC W Auto Differential panel in Blood Observa Value Referen Units Interpr Notes Date tion ce etation Range Basophils 0 - 0.2 K/MM3 Normal No February 04 informati 2016 9:00 [#/volume on in AM ] in source Blood by data Automated count Basophils 0.1 - 2.0 % Normal No February 04 / informati 2016 9:00 leukocyte on in AM s in source Blood by data Automated count Eosinophi 0.0 - 0.4 K/mm3 Normal No February 04 ls informati 2016 9:00 [#/volume on in AM ] in source Blood by data Automated count Eosinophi 0.1 - % Normal No February 04 ls/100 12.0 informati 2016 9:00 leukocyte on in AM s in source Blood by data Automated count Granulocy 1.8 - 7.8 K/mm3 Normal No February 04 maritza informati 2016 9:00 [#/volume on in AM ] in source Blood by data Automated count Granulocy 37.0 - % Normal No February 04 maritza/100 80.0 informati 2016 9:00 leukocyte on in AM s in source Blood by data Automated count Hematocri 37.0 - % Normal No February 04 t [Volume 47.0 informati 2016 9:00 on in AM Fraction] source of Blood data Hemoglobi 12.2 - g/dL Normal No February 04 n 16.2 informati 2016 9:00 [Mass/vol on in AM ume] in source Blood data Lymphocyt 0.7 - 4.5 K/mm3 Normal No February 04 es informati 2016 9:00 [#/volume on in AM ] in source Unspecifi data ed specimen by Automated count Lymphocyt 10 - 50.0 % Normal No February 04 es informati 2016 9:00 [#/volume on in AM ] in source Unspecifi data ed specimen by Automated count Erythrocy 27 - 31.2 pg High No February 04 te mean informati 2016 9:00 corpuscul on in AM ar source hemoglobi data n [Entitic mass] Erythrocy 31.8 - g/dl Normal No February 04 te mean 35.4 informati 2016 9:00 corpuscul on in AM ar source hemoglobi data n concentra tion [Mass/vol ume] by Automated count Erythrocy 82.2 - fl High No February 04 te mean 97.8 informati 2016 9:00 corpuscul on in AM ar volume source [Entitic data volume] by Automated count Monocytes 0.1 - 1.0 K/mm3 Normal No February 04 informati 2016 9:00 [#/volume on in AM ] in source Blood by data Automated count Monocytes 1.7 - 9.3 % Normal No February 04 /100 informati 2016 9:00 leukocyte on in AM s in source Blood by data Automated count Platelet 7.4 - fl Low No February 04 mean 10.4 informati 2016 9:00 volume on in AM [Entitic source volume] data in Blood by Automated count Platelets 142 - 424 K/mm3 Normal No February 04 informati 2016 9:00 [#/volume on in AM ] in source Blood data Erythrocy 4.2 - 5.4 M/mm3 Low No February 04 maritza informati 2016 9:00 [#/volume on in AM ] in source Amniotic data fluid Erythrocy 11.5 - % Normal February 04 te 17.5 informati 2016 9:00 distribut on in AM ion width source [Entitic data volume] by Automated count Leukocyte 4.8 - K/MM3 Low No February 04 s 10.8 informati 2016 9:00 [#/volume on in AM ] in source Blood data
--- OUTSIDE RECORDS SUMMARY | 2017-06-22 02:22 | External Medical Summary Rpt ---
Author Author , DEDRICK TSE Address Unknown Phone [email or web address] Immunization Name Date Rout CVX Reac Dose [...]
--- OUTSIDE RECORDS SUMMARY | 2017-06-22 02:22 | External Medical Summary Rpt ---
Author Author , DEDRICK TSE Address Unknown Phone [email or web address] Providers Care Molding Associate Name Role Phone DEMI FERNANDEZ MD, Unavailable Unavailable DEMI FERNANDEZ MD Purpose Continuity of Care Document - 05-22-2013 through 2016 Problems Code Diagnosis DOS Provider Status 250.01 250.01 DIAB 05-22-2013 [facility], TYPE Hospital I [JUVENILE TYPE], NOT UNCNTRLD 305.1 305.1 05-22-2013 [place] TOBACCO USE [facility] DISORDER [facility] 401.9 401.9 05-22-2013 [place] HYPERTENSIO [facility] N NOS Hospital 491.9 491.9 05-22-2013 [place] CHRONIC [facility] BRONCHITIS Hospital NOS 493.90 493.90 05-22-2013 [place] ASTHMA, [facility] UNSPECIFIED Hospital 786.2 786.2 COUGH 05-22-2013 [facility] 786.50 786.50 05-22-2013 [place] CHEST PAIN [facility] 789.06 789.06 05-22-2013 [place] ABDOMINAL [facility] PAIN, Hospital EPIGASTRIC Allergies, Adverse Reactions, Alerts Type Drug Allergy [...] high power field Leukocy 5-10 O complet martiza 017 wbc/hpf ed [#/volu 06:09 me] in [...] with AUTO DIFF (05-22-2013 11:25) WBC # 06-2 10.1 4.8-10. complet Bld 013 K/MM3 8 ed Auto 11:25 RBC # 05-22-2 5.12 4.2-5.4 complet Bld 013 M/mm3 ed Auto 11:25 Hgb 09-06-2 15.6 12.2-16 complet Bld-mCn 013 g/dL .2 ed c 11:25 Hct Fr -06-2 47.2 % 37.0-47 complet Bld 013 .0 ed 11:25 MCV RBC -06-2 92.2 fl 82.2-97 complet 013 .8 ed 11:25 MCH RBC -06-2 30.4 pg 27-31.2 complet Qn 013 ed Auto 11:25 MEAN -06-2 33.0 31.8-35 complet CORPUSC 013 g/dl .4 ed ULAR 11:25 HGB CONC RDW RBC -06-2 14.3 % 11.5-17 complet Auto 013 .5 ed 11:25 Platele 09-06-2 297 142-424 complet t Bld 013 K/mm3 ed Ql 11:25 Manual MEAN 06-2 8.3 fl 7.4-10. complet PLATELE 013 4 ed T 11:25 VOLUME Granulo -06-2 72.6 % 37.0-80 complet cytes 013 .0 ed Fr Bld 11:25 Auto LYMPH % 09-06-2 20.9 % 10-50.0 complet 013 ed 11:25 [...] WILLIAM FERNANDEZ (ER) 3 10:50 3 14:21 [facility] DEMI
--- OUTSIDE RECORDS SUMMARY | 2017-06-22 02:22 | External Medical Summary Rpt ---
Author Author , DEDRICK TSE Address Unknown Phone [email or web address] [email or web address] Care Market Development Director Name Role Phone DEMI FERNANDEZ MD, Unavailable Unavailable DEMI FERNANDEZ MD Purpose Continuity of Care Document - 05-22-2013 through 2016 Problems Code Diagnosis DOS Provider Status 250.01 250.01 DIAB 05-22-2013 [facility], TYPE Hospital I [JUVENILE TYPE], NOT UNCNTRLD 305.1 305.1 05-22-2013 [place] TOBACCO USE [facility] DISORDER [facility] 401.9 401.9 05-22-2013 [place] HYPERTENSIO [facility] N NOS Hospital 491.9 491.9 05-22-2013 [place] CHRONIC [facility] BRONCHITIS Hospital NOS 493.90 493.90 05-22-2013 [place] ASTHMA, [facility] UNSPECIFIED Hospital 786.2 786.2 COUGH 05-22-2013 [facility] 786.50 786.50 05-22-2013 [place] CHEST PAIN [facility] 789.06 789.06 05-22-2013 [place] ABDOMINAL [facility] PAIN, Hospital EPIGASTRIC Allergies, Adverse Reactions, Alerts [...] WILLIAM FERNANDEZ (ER) 3 10:50 3 14:21 [facility] DEMI
--- OUTSIDE RECORDS SUMMARY | 2017-06-22 02:22 | External Medical Summary Rpt ---
Author Author , DEDRICK TSE Address Unknown Phone [email or web address] Immunization Name Date Rout CVX Reac Dose [...]
== END 2017-05-18 13:00 | disposition home or self-care (01) ==
LOC: ER 17:15 → 2ND 20:15
PROVIDERS: Emergency Medicine
DX: E86.0 Dehydration (principal); M62.82 Rhabdomyolysis; R94.4 Abnormal results of kidney function studies; C79.70 Secondary malignant neoplasm of unspecified adrenal gland; C79.51 Secondary malignant neoplasm of bone; I25.10 Atherosclerotic heart disease of native coronary artery without angina pectoris; I10 Essential (primary) hypertension; J44.9 Chronic obstructive pulmonary disease, unspecified; E11.9 Type 2 diabetes mellitus without complications; C34.92 Malignant neoplasm of unspecified part of left bronchus or lung; Z79.84 Long term (current) use of oral hypoglycemic drugs; Z79.891 Long term (current) use of opiate analgesic; Z79.899 Other long term (current) drug therapy; F17.210 Nicotine dependence, cigarettes, uncomplicated; W18.30XA Fall on same level, unspecified, initial encounter; Y93.9 Activity, unspecified; Y92.009 Unspecified place in unspecified non-institutional (private) residence as the place of occurrence of the external cause